=== PATIENT | female | born 1990 | race Caucasian/White ===

== ENCOUNTER 2020-02-27 13:51 | Emergency (ER) | payer OTHER, SELFPAY ==
[2020-02-27 14:00] VITALS: BP 111/61; PULSE 72; RESP 18; TEMP 36.7; O2SAT 100
--- NOTE | 2020-02-27 15:08 | ED.GENADULT ---
HPI - General Adult General Chief complaint: Upper Respiratory Infection Stated complaint: cough/headache History of Present Illness HPI narrative: Patient is a 29-year-old female presents to the urgent care via POV for evaluation of cold symptoms that have been present for approximately 1 day. Additionally, she reports dry cough, sore throat, and fever. She reports maximum temperature to be 100.0. Temperature controlled with Tylenol. Nothing worsened symptoms. She is a current tobacco user. She smokes 0.5 PPD x10 years. She states she is here since her employer recommended her to be medically evaluated and that she would need for a return to work note before returning to work obtained today's visit. Denies history of COPD, bronchitis, asthma, and pneumonia. Pertinent negatives: sweats, chills, change in appetite, fatigue, skin color changes, headache, nasal congestion/discharge, dizziness, lymphadenopathy, sinus problems, ear pain/drainage, drooling, voice changes, chest pain, heart murmurs, heart palpitations, shortness of breath, wheezing, cyanosis, hemoptysis, hoarseness, orthopnea, pleuritic pain, nausea, vomiting, diarrhea, and myalgias. Related Data Home Medications Medication Instructions Recorded Confirmed No Home Medications 02/27/20 02/27/20 Allergies Allergy/AdvReac Type Severity Reaction Status Date / Time sulfa Allergy Intermediate Rash Uncoded 02/27/20 14:11 Review of Systems Review of Systems: Narrative: All other systems reviewed and are negative PMFSH Social History Social History Gender identity (if verbalized by the patient): Female Comments I have reviewed and agree with the patient's past medical, surgical, social, and family hx as documented by the RN. There is no relevant family history pertinent to the presenting complaint. Exam Narrative: Exam Narrative: GENERAL: Well-appearing, well-nourished, and in no acute distress. HEAD: Normocephalic, atraumatic. No sinus tenderness or facial swelling appreciated. EYES: PERRLA and EOMI. No evidence of erythema, swelling, or drainage. ENT: Bilateral external ears and ear canals normal. Bilateral TMs are normal.No TM perforation. Nares clear, no rhinorrhea or epistaxis. Bilateral turbinates without erythema/ swelling. Mucous membranes moist and pink. Uvula is midline without erythema and swelling. No evidence of petechial rash, cobblestoning, lesions, ulcers, erythema, swelling, exudates, peritonsillar abscess, tenting, or drooling. Breath odor and voice normal. NECK: Supple. No Lymphadenopathy or nuchal rigidity appreciated. CHEST: Bilateral lung bejarano are clear to auscultation. No respiratory distress. No evidence of cough or pleuritic cp upon examination. HEART: Regular rate and rhythm. No murmur, gallop, or rub heard. EXTREMITIES: Normal range of motion. No edema. SKIN: Warm, dry, no rash. NEURO: No focal deficits. Alert and oriented x3. Course Vital Signs Vital signs: Vital Signs Temperature 98.1 F 02/27/20 14:00 Pulse Rate 72 02/27/20 14:00 Respiratory Rate 18 02/27/20 14:00 Blood Pressure 111/61 02/27/20 14:00 Pulse Oximetry 100 02/27/20 14:00 Temperature 98.1 F 02/27/20 14:00 Pulse Rate 72 02/27/20 14:00 Respiratory Rate 18 02/27/20 14:00 Blood Pressure 111/61 02/27/20 14:00 Pulse Oximetry 100 02/27/20 14:00 Procedures Smoking Cessation Time Spent Discussing Smoking Cessation w/Patient (min): 2 Patient Acknowledges Need for Cessation: Yes Additional Comments: Review smoking cessation materials Medical Decision Making Medical Records Medical records reviewed: Yes I reviewed the patient's medical records. Vital Signs Vital Signs: Vital Signs Temperature 98.1 F 02/27/20 14:00 Pulse Rate 72 02/27/20 14:00 Respiratory Rate 18 02/27/20 14:00 Blood Pressure 111/61 02/27/20 14:00 Pulse Oximetry 100 04/0
== END 2020-02-27 15:12 | disposition home or self-care (01) ==
PROVIDERS: Emergency Provider Nurse Practitioner Family
DX: J06.9 Acute upper respiratory infection, unspecified (principal); F17.200 Nicotine dependence, unspecified, uncomplicated
CPT/HCPCS: 99211; G0463

== ENCOUNTER 2020-06-12 12:39 | Emergency (ER) | payer OTHER, SELFPAY ==
--- NOTE | ~2020-06-12 | CT_ITS ---
EXAMINATION: CT brain wo con DATE: 06/12/2020 14:10 INDICATION: Head injury. TECHNIQUE: Computed tomography (CT) of the head was performed without intravenous contrast. The mA wa s adjusted according to patient size. Iterative reconstruction technique was employed. Exam dose: 60 5.33 mGy-cm total exam DLP. COMPARISON: 03/14/2013 CT brain FINDINGS: No intracranial mass lesion or hemorrhage or cerebrovascular accident. No midline shift or mass effects. Normal ventricular size. Normal baldwin-white matter differentiation. No subdural or epidu ral hematoma. No fracture or bone destruction of the cranial vault. With the exception of some focal areas of soft tissue thickening of the ethmoid air cells, the included paranasal sinuses and mastoid air cells are normally developed and aerated. No recent fracture or bone destruction of the cranial vault. IMPRESSION: No acute intracranial finding or recent skull fracture Reviewed, dictated and finalized at [facility]. Reviewed, dictated and finalized at [facility].
--- NOTE | ~2020-06-12 | CT_ITS ---
EXAMINATION: CT facial bones wo con DATE: 06/12/2020 14:10 INDICATION: Left jaw pain. Injury. TECHNIQUE: Computed tomography (CT) of the facial bones and maxillofacial region was performed withou t intravenous contrast. Automated exposure control and iterative reconstruction technique were employ ed. The dose-length product was 605.33 mGy-cm. COMPARISON: CT facial bones 06/16/2016 FINDINGS: There are likely changes of right ocular lens replacement surgery. There is mild mucosal th ickening in the ethmoid sinuses. There is a nondisplaced oblique fracture of left mandibular ramus. T here is a nondisplaced fracture of left lateral pterygoid plate. There is leftward deviation the nasa l septum. IMPRESSION: 1. Nondisplaced oblique fracture of left mandibular ramus. 2. Nondisplaced fracture of left lateral pterygoid plate. Reviewed, dictated and finalized at [facility].
--- NOTE | ~2020-06-12 | XR_ITS ---
EXAMINATION: XR hand RT min 3V INDICATION: Right hand pain TECHNIQUE: Three views of the right hand are obtained. COMPARISON: 11/29/2009 FINDINGS: There is no fracture, dislocation, or subluxation. The bones, soft tissues, and joint space s are normal. IMPRESSION: 1. No acute osseous abnormality. Reviewed, dictated and finalized at location [facility].
[2020-06-12 12:45] VITALS: BP 138/66; PULSE 83; RESP 18; TEMP 37.2; O2SAT 100
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
[2020-06-12 14:50] VITALS: PULSE 70; RESP 18; O2SAT 100
[2020-06-12] MEDS: KETOROLAC (*BKC) 60 MG/2 ML VIAL IM (15:07)
[2020-06-12 16:30] VITALS: BP 115/73; PULSE 64; RESP 16; O2SAT 100
== END 2020-06-12 16:34 | disposition home or self-care (01) ==
PROVIDERS: Emergency Provider Emergency Medicine
DX: S02.642A Fracture of ramus of left mandible, initial encounter for closed fracture (principal); S02.19XA Other fracture of base of skull, initial encounter for closed fracture; Z98.49 Cataract extraction status, unspecified eye; Y04.2XXA Assault by strike against or bumped into by another person, initial encounter
CPT/HCPCS: 70450; 70486; 73130; 81025; 96372; 99284; A9270; J1885

== ENCOUNTER 2021-03-16 12:55 | Emergency (ER) | payer OTHER, SELFPAY ==
[2021-03-16 13:04] VITALS: BP 106/60; PULSE 97; RESP 16; TEMP 36.8; O2SAT 100
--- NOTE | 2021-03-16 13:04 | PC.NURSE ---
in br to obtain ua spec.
--- NOTE | 2021-03-16 13:43 | ED.FEMALEGU ---
HPI - Female Genitourinary General Chief complaint: Urogenital-Female Stated complaint: UTI Time Seen by Provider: 03/16/21 13:43 Source: patient and RN notes reviewed Mode of arrival: ambulatory Limitations: no limitations History of Present Illness HPI Narrative: 30-year-old female who presents to [facility] with complaints of urinary frequency, burning,urgency, voiding small amounts, and suprapubic pain for the past 4 days. Patient has stated past urinary tract infections and also history of pyelonephritis in the past.Patient states that she has no vaginal discharge, itching, no new sexual partners or concerns for STD's. Patient states that she has been taking Tylenol and cranberry pills for her discomfort which she rates as 5/10. Patient denies any fevers, chills or sweats, denies any nausea or vomiting, or any CVA tendeerness. MD elicited complaint: dysuria and UTI Pertinent past history: recurrent UTIs Onset (ago): day(s) (4) Location of symptoms: suprapubic Severity: moderate Female Urogenital Radiation: Suprapubic Severity scale (1-10): 5 Quality of pain: burning (with urination) and aching Consistency: progressively worsening Vaginal bleeding: none Urinary symptoms: Dysuria, Urgency, Frequency and Difficulty Urinating Exacerbating factors: urination Relieving factors: none Associated symptoms: abdominal pain (suprapubic) Treatment prior to arrival: acetaminophen and other (cranberry pills) Sexual activity: Yes Patient : No Possible : other (tubal ligation) Related Data Allergies Allergy/AdvReac Type Severity Reaction Status Date / Time sulfa Allergy Intermediate Rash Uncoded 02/27/20 14:11 Review of Systems Review of Systems: Narrative: CONSTITUTIONAL: Denies fever, chills, or sweats. EYES: Denies visual changes, redness, or discharge. ENT: Denies rhinorrhea, congestion, sore throat, or otalgia. CARDIOVASCULAR: Denies chest pain, palpitations, or edema. RESPIRATORY: Denies cough or dyspnea. GASTROINTESTINAL:Positive for suprapubic abdominal pain, no nausea, vomiting, or diarrhea. GENITOURINARY:Positive dysuria no visual hematuria. SKIN: Denies rash or itching. MUSCULOSKELETAL: Denies back pain, joint pain, or myalgia. NEUROLOGIC: Denies headache, numbness, or weakness. PSYCHIATRIC: Denies anxiety or depression. All systems reviewed & are unremarkable except as noted in HPI and below PMFSH Past Medical History Medical History (Updated 03/20/21 @ 16:11 by Mayelin Peres NP) Hx of migraines Mandible fracture Surgical History Surgical History (Updated 06/12/20 @ 13:20 by Rachel Sanchez PA-C) History of cataract extraction History of tubal ligation Family History Family History (Updated 03/20/21 @ 16:18 by Mayelin Peres NP) Grandparent Cerebrovascular accident Other Autoimmune disease Heart disease Hypertension Social History Social History (Updated 03/20/21 @ 16:16 by Mayelin Peres NP) Smoking packs per day: 0.5 Smoking cigarettes per day: 10.0 Smoking status: Current every day smoker Tobacco type: cigarettes Alcohol intake: current Alcohol use details: rare social Substance use: never Living arrangements: with family Gender identity (if verbalized by the patient): Female Comments At time of signature agree with nursing documentation of past medical, surgical, social and family history. There is no pertinent family history relevant to presenting complaint. Exam Narrative: Exam Narrative: GENERAL: Well-appearing, well-nourished, and in no acute distress. HEAD: Normocephalic, atraumatic. EYES: PERRLA and EOMI. ENT: Nares clear, no rhinorrhea or epistaxis. Mucous membranes moist. NECK: Supple.no lymphadenopathy CHEST: Clear to auscultation. No respiratory distress.SAO2 100% on room air HEART: Regular rate and rhythm. No murmur heard. Normal peripheral pulses. ABDOMEN: Soft, tender over suprapubic area of abdomen, nondistended, normal activ
== END 2021-03-16 14:02 | disposition home or self-care (01) ==
PROVIDERS: Emergency Provider Registered Nurse
DX: N39.0 Urinary tract infection, site not specified (principal); F17.210 Nicotine dependence, cigarettes, uncomplicated
CPT/HCPCS: 81003; 87077; 87086; 87088; 87186; 99213; G0463

== ENCOUNTER 2021-08-29 19:24 | Emergency (ER) | payer OTHER, SELFPAY ==
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
[2021-08-29 19:32] VITALS: BP 129/81; PULSE 81; RESP 18; TEMP 36.8; O2SAT 98
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
[2021-08-29] MEDS: ACETAMINOPHEN 500 MG TABLET 1000 MG PO (20:34)
--- NOTE | 2021-08-29 20:35 | PC.NURSE ---
pt. requesting medication for yeast infection. erp notified.
== END 2021-08-29 21:22 | disposition home or self-care (01) ==
PROVIDERS: Emergency Provider Emergency Medicine
DX: S39.92XA Unspecified injury of lower back, initial encounter (principal); Z98.49 Cataract extraction status, unspecified eye; F17.210 Nicotine dependence, cigarettes, uncomplicated; V40.5XXA Car driver injured in collision with pedestrian or animal in traffic accident, initial encounter
CPT/HCPCS: 72100; 73521; 81025; 99284; A9270

== ENCOUNTER 2021-10-12 10:14 | Emergency (ER) | payer OTHER, SELFPAY ==
[2021-10-12 10:29] VITALS: BP 117/59; PULSE 94; RESP 18; TEMP 36.9; O2SAT 100
--- NOTE | 2021-10-12 11:45 | ED.FEMALEGU ---
HPI - Female Genitourinary General Chief complaint: Urogenital-Female Stated complaint: Yeast Infection Time Seen by Provider: 10/12/21 11:43 Source: patient and RN notes reviewed Mode of arrival: ambulatory Limitations: no limitations History of Present Illness HPI Narrative: 30-year-old female presents with concern for abnormal vaginal discharge. Reports foul-smelling discharge, occasional vaginal itching. Reports she was seen at the emergency room and was given Diflucan 4 weeks ago which did not improve her symptoms. She denies any chance for STDs, reports normal periods. 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 She denies dysuria, frequency, urgency MD elicited complaint: vaginal discharge Related Data Allergies Allergy/AdvReac Type Severity Reaction Status Date / Time sulfa Allergy Intermediate Rash Uncoded 08/29/21 19:35 Review of Systems Review of Systems: CONSTITUTIONAL: Denies malaise, chills, sweats, or fever. GASTROINTESTINAL: Denies abdominal pain, nausea, vomiting, diarrhea, bloody, or mucous stools. GENITOURINARY: Denies dysuria or hematuria. Reports foul-smelling vaginal discharge SKIN: Reports occasional vaginal itching MUSCULOSKELETAL: Denies back pain or myalgia. All systems reviewed & are unremarkable except as noted in HPI and below PMFSH Past Medical History Medical History Hx of migraines Mandible fracture Surgical History Surgical History History of cataract extraction History of tubal ligation Family History Family History Grandparent Cerebrovascular accident Other Autoimmune disease Heart disease Hypertension Social History Social History (Updated 03/20/21 @ 16:16 by Mayelin Peres NP) Smoking packs per day: 0.5 Smoking cigarettes per day: 10.0 Smoking status: Current every day smoker Tobacco type: cigarettes Alcohol intake: current Alcohol use details: rare social Substance use: never Gender identity (if verbalized by the patient): Female Comments At time of signature, agree with nursing past medical, surgical, social and family history. There is no relevant family history pertinent to the presenting complaint Exam Narrative: GENERAL: Well-appearing, well-nourished, and in no acute distress. HEAD: Normocephalic. EYES: PERRLA, conjunctivae clear. NECK: Supple. No lymphadenopathy CHEST: Clear to auscultation. No respiratory distress. HEART: Regular rate and rhythm. SKIN: Warm, dry, no rash. NEURO: Alert and oriented x3. PSYCH: Normal mood and affect Patient refused pelvic exam Course Course Emergency Course: Patient is aware of diagnosis, understands and agrees to treatment plan. Anticipatory guidance given. Patient agrees to follow-up as directed and is aware of reasons to seek care at the emergency department. Portions of this record may have been created with voice recognition software Vital Signs Vital signs: Vital Signs Temperature 98.5 F 10/12/21 10:29 Pulse Rate 94 10/12/21 10:29 Respiratory Rate 18 10/12/21 10:29 Blood Pressure 117/59 L 10/12/21 10:29 Pulse Oximetry 100 10/12/21 10:29 Temperature 98.5 F 10/12/21 10:29 Pulse Rate 94 10/12/21 10:29 Respiratory Rate 18 10/12/21 10:29 Blood Pressure 117/59 L 10/12/21 10:29 Pulse Oximetry 100 10/12/21 10:29 Reviewed. MDM - Female Genitourinary MDM Narrative Medical decision making narrative: Exam findings show no acute concerns or changes; patient is non-toxic appearing and is in no distress. Patient is appropriate for outpatient treatment and follow-up. Differential Diagnosis Differential diagnosis: Likely bacterial vaginosis, cervicitis, vaginitis and other (Yeast infection) Critical Care Time Critical Care Time Critical Care Time: No Discharge Plan Discha
== END 2021-10-12 11:56 | disposition home or self-care (01) ==
PROVIDERS: Emergency Provider Nurse Practitioner
DX: N89.8 Other specified noninflammatory disorders of vagina (principal); F17.210 Nicotine dependence, cigarettes, uncomplicated
CPT/HCPCS: 99213; G0463

== ENCOUNTER 2023-11-11 00:51 | Emergency (ER) | payer OTHER, SELFPAY ==
--- NOTE | ~2023-11-11 | XR_ITS ---
XR forearm RT 2V 11/11/2023 01:29 INDICATION: Right arm pain PROCEDURE: 2 views right forearm COMPARISON: No prior studies for comparison. FINDINGS: Fracture, dislocation or subluxation is not identified. The soft tissues appear within norm al limits. No foreign bodies are identified. IMPRESSION: 1: NO ACUTE BONE OR JOINT ABNORMALITY IDENTIFIED. Reviewed, dictated and finalized at location A. CHARGE BOOKKEEPER
[2023-11-11 00:53] VITALS: BP 116/63; PULSE 103; RESP 16; TEMP 36.6; O2SAT 96
--- NOTE | 2023-11-11 01:10 | ED.UPPEXIN ---
HPI - Extremity Injury (Upper) General Chief Complaint: Extremity Injury, Upper Stated Complaint: hurt my arm a week ago swollen and pain, R. arm Time Seen by Provider: 11/11/23 01:03 Source: patient Mode of arrival: ambulatory Limitations: no limitations History of Present Illness HPI narrative: This is a 32 year old female that presents to the ER for right arm pain and swelling. Ongoing over the last week. Reports she was doing some yard work and the pain started the next day. No known injuries. She has had persistent swelling and pain in the right arm which prompted her to be seen. She has been icing the area. Denies decreased ROM or numbness. Related Data Home Medications Medication Instructions Recorded Confirmed bupropion HCl 150 mg 24 hr tablet, mg PO 11/11/23 extended release hydroxyzine HCl 25 mg tablet mg 11/11/23 Allergies Allergy/AdvReac Type Severity Reaction Status Date / Time Sulfa (Sulfonamide Allergy Rash Verified 11/11/23 01:10 Antibiotics) sulfa Allergy Intermediate Rash Uncoded 08/29/21 19:35 Review of Systems Review of Systems: CONSTITUTIONAL: Denies fever MUSCULOSKELETAL: Reports joint pain, and myalgia. NEUROLOGIC: Denies numbness, or weakness. All systems reviewed & are unremarkable except as noted in HPI and below PMFSH Past Medical History Medical History Hx of migraines Mandible fracture Surgical History Surgical History History of cataract extraction History of tubal ligation Family History Family History Grandparent Cerebrovascular accident Other Autoimmune disease Heart disease Hypertension Social History Social History (Updated 03/20/21 @ 16:16 by Mayelin Peres NP) Smoking packs per day: 0.5 Smoking cigarettes per day: 10.0 Smoking status: Current every day smoker Tobacco type: cigarettes Alcohol intake: current Alcohol use details: rare social Substance use: never Living arrangements: with family Gender identity (if verbalized by the patient): Female Exam Narrative: GENERAL: Well-appearing, well-nourished, and in no acute distress. HEAD: Normocephalic, atraumatic. EYES: EOMI. EXTREMITIES: Normal range of motion. No erythema or warmth. Mild edema about the right forearm distally. Normal radial pulse. Normal sensation SKIN: Warm, dry, no rash. NEURO: No focal deficits. Alert and oriented x3. PSYCH: Normal mood and affect Course Course Emergency Course: patient updated on workup and agrees with plan of care Vital Signs Vital signs: Vital Signs Temperature 97.9 F 11/11/23 00:53 Pulse Rate 103 H 11/11/23 00:53 Respiratory Rate 16 11/11/23 00:53 Blood Pressure 116/63 11/11/23 00:53 Pulse Oximetry 96 11/11/23 00:53 Oxygen Delivery Room Air 11/11/23 00:53 Temperature 97.9 F 11/11/23 00:53 Pulse Rate 103 H 11/11/23 00:53 Respiratory Rate 16 11/11/23 00:53 Blood Pressure 116/63 11/11/23 00:53 Pulse Oximetry 96 11/11/23 00:53 Oxygen Delivery Room Air 11/11/23 00:53 MDM - Extremity Injury (Upper) MDM Narrative Medical decision making narrative: Patient presents to the ER for right forearm pain ongoing over the last week. Mild swelling noted to the area without erythema or warmth. Patient is neurovascularly intact. Cbc without leukocytosis. Shows normocytic anemia with hemoglobin of 9.9. Metabolic panel with hypokalemia. Patient's potassium replaced in the ED. Her magnesium is normal. D-dimer is not elevated. Right forearm x-rays without acute osseous abnormalities. Patient placed in Toño wrap. Instructed to rest, ice and take [id number] pain medication as needed. She is to follow up with primary care provider. She was given warnings to return to the ER Differential Diagnosis Differenti
[2023-11-11] MEDS: ACETAMINOPHEN 500 MG TABLET 1000 MG PO (01:14)
[2023-11-11 01:54] LABS: Basophils Percent Auto 0.2 % (0.2-1.2); Eosinophils Absolute Auto 0.1 K/mm3 (0-0.3); Eosinophils Percent Auto 1.3 % (0-4.4); Hematocrit 30.4 % (37.0-47.0); Hemoglobin 9.9 g/dL (12.0-15.0); Immature Granulocyte Absolute 0.01 K/mm3 (0.00-0.031); Immature Granulocyte Percent A 0.2 % (0-0.5); Lymphocytes Absolute Auto 1.72 K/mm3 (0.9-3.2); Lymphocytes Percent Auto 36.6 % (18.3-44.2); Mean Corpuscular HGB Conc 32.6 g/dl (32-36); Mean Corpuscular Hemoglobin 29.7 pg (26-34); Mean Corpuscular Volume 91.3 fl (80-100); Mean Platelet Volume 9.8 fl (7.4-10.4); Monocytes Absolute Auto 0.4 K/mm3 (0.1-0.6); Monocytes Percent Auto 7.7 % (2.6-8.5); Neutrophils Absolute Auto 2.5 K/mm3 (1.3-6.7); Platelet Count Result 160 k/mm3 (150-375); Red Blood Count 3.33 M/mm3 (4.2-5.4); Red Cell Distribution Width 14.3 % (11.5-14.5); White Blood Count 4.7 K/mm3 (4.5-10.0)
[2023-11-11 02:18] LABS: Anion Gap 9 mmol/L (8-16); Blood Urea Nitrogen 11 mg/dL (7-17); Calcium 8.7 mg/dL (8.4-10.2); Carbon Dioxide 27 mmol/L (22-30); Chloride 99 mmol/L (98-107); Estimated CRCL calculation 93 ml/min; Estimated Glomerular Filt Rate > 60; Glucose 111 mg/dL (65-110); Sodium 135 mmol/L (137-145)
[2023-11-11 02:33] LABS: Magnesium 1.7 mg/dL (1.6-2.3)
[2023-11-11] MEDS: POTASSIUM CHLORIDE 20 MEQ ER TABLET 40 MEQ PO (02:55)
[2023-11-11 02:56] LABS: D Dimer 0.27 ug/mL (<0.48)
== END 2023-11-11 03:13 | disposition home or self-care (01) ==
PROVIDERS: Emergency Provider Physician Assistant
DX: M79.631 Pain in right forearm (principal); E87.6 Hypokalemia; D64.9 Anemia, unspecified; F17.210 Nicotine dependence, cigarettes, uncomplicated
CPT/HCPCS: 36415; 73090; 80048; 83735; 85025; 85380; 99283; A9270

== ENCOUNTER 2024-01-23 19:55 | Emergency (ER) | payer OTHER, SELFPAY ==
[2024-01-23 20:13] VITALS: BP 128/86; PULSE 82; RESP 16; TEMP 36.5; O2SAT 100
[2024-01-23 20:19] LABS: Basophils Percent Auto 0.5 % (0.2-1.2); Eosinophils Absolute Auto 0.1 K/mm3 (0-0.3); Eosinophils Percent Auto 1.5 % (0-4.4); Hematocrit 34.9 % (37.0-47.0); Hemoglobin 11.7 g/dL (12.0-15.0); Immature Granulocyte Absolute 0.01 K/mm3 (0.00-0.031); Immature Granulocyte Percent A 0.2 % (0-0.5); Lymphocytes Percent Auto 36.3 % (18.3-44.2); Mean Corpuscular HGB Conc 33.5 g/dl (32-36); Mean Corpuscular Hemoglobin 29.9 pg (26-34); Mean Corpuscular Volume 89.3 fl (80-100); Mean Platelet Volume 10.2 fl (7.4-10.4); Monocytes Absolute Auto 0.3 K/mm3 (0.1-0.6); Monocytes Percent Auto 6.5 % (2.6-8.5); Neutrophils Absolute Auto 2.3 K/mm3 (1.3-6.7); Platelet Count Result 146 k/mm3 (150-375); Red Blood Count 3.91 M/mm3 (4.2-5.4); White Blood Count 4.1 K/mm3 (4.5-10.0)
[2024-01-23 20:33] LABS: Alanine Aminotransferase 11 U/L (6-35); Albumin Level 4.3 g/dL (3.5-5.1); Alkaline Phosphatase 47 U/L (38-126); Anion Gap 9 mmol/L (8-16); Aspartate Amino Transferase 16 U/L (14-36); Bilirubin,Total 0.3 mg/dL (0.2-1.3); Blood Urea Nitrogen 14 mg/dL (7-17); Carbon Dioxide 23 mmol/L (22-30); Chloride 106 mmol/L (98-107); Estimated CRCL calculation 94 ml/min; Estimated Glomerular Filt Rate > 60; Glucose 117 mg/dL (65-110); Lipase 52 U/L (23-300); Sodium 138 mmol/L (137-145)
[2024-01-23 20:49] LABS: Appearance Urine Cloudy (Clear); Bacteria Urine 4+ /hpf; Bilirubin Urine Negative (Negative); Blood Urine Negative (Negative); Color Urine Yellow (Yellow); Glucose Urine UA Negative (Negative); Ketones Urine Trace mg/dL (Negative); Leukocyte Esterase Ur Negative LEU/UL (Negative); Need Manual Microscopic Reviewed; Nitrate Urine Negative (Negative); Non Pathogenic Casts 0-2; Protein Urine Trace mg/dL (Negative); RBC Urine 0-2 /hpf (0-2); Specific Grav Ur 1.026 (1.001-1.035); Squamous Epithelial Cell Urine Many /hpf (Few); WBC Urine 21-50 /hpf
[2024-01-23 20:51] LABS: Add Urine Microscopic? YES
--- NOTE | 2024-01-24 00:01 | PC.NURSE ---
Pt called for triage x2, no answer.
== END 2024-01-24 00:56 | disposition left against medical advice (07) ==
PROVIDERS: Emergency Provider Emergency Medicine
DX: M54.50 Low back pain, unspecified (principal)
CPT/HCPCS: 36415; 80053; 81001; 81025; 83690; 85025; 87086; 87088; 99199

== ENCOUNTER 2024-04-05 21:30 | Emergency (ER) | payer OTHER, SELFPAY ==
[2024-04-05 21:44] VITALS: BP 120/66; PULSE 76; RESP 17; TEMP 37.1; O2SAT 95
[2024-04-05 21:51] VITALS: PULSE 81; RESP 12; O2SAT 97
--- NOTE | 2024-04-05 21:59 | ECG_ITS ---
SEE SCANNED COPY FOR CONFIRMED REPORT MTDD
--- NOTE | 2024-04-05 22:31 | ED.GENADULT ---
HPI - General Adult General Chief complaint: Unspecified Stated complaint: jitters, hot flashes Time Seen by Provider: 04/05/24 21:56 History of Present Illness HPI narrative: 33-year-old female presents emergency department for evaluation for ?withdrawal? symptoms. Patient reports she has been drinking a ganga energy drink, drinking about 3 a day. Patient states when she tries to stop drinking than she feels increasingly sick to her stomach. Patient reports body aches. Patient suspects she has going through withdrawal. Patient also suspects that the company is putting something in the drinks that they are not telling the consumers about. Related Data Home Medications Medication Instructions Recorded Confirmed bupropion HCl 150 mg 24 hr tablet, mg PO 11/11/23 extended release hydroxyzine HCl 25 mg tablet mg 11/11/23 Allergies Allergy/AdvReac Type Severity Reaction Status Date / Time Sulfa (Sulfonamide Allergy Rash Verified 04/05/24 21:56 Antibiotics) sulfa Allergy Intermediate Rash Uncoded 04/05/24 21:56 Review of Systems Review of Systems: All systems reviewed & are unremarkable except as noted in HPI and below PMFSH Past Medical History Medical History Hx of migraines Mandible fracture Surgical History Surgical History History of cataract extraction History of tubal ligation Family History Family History Grandparent Cerebrovascular accident Other Autoimmune disease Heart disease Hypertension Social History Social History (Updated 03/20/21 @ 16:16 by Mayelin Peres NP) Smoking packs per day: 0.5 Smoking cigarettes per day: 10.0 Smoking status: Current every day smoker Tobacco type: cigarettes Alcohol intake: current Alcohol use details: rare social Substance use: never Living arrangements: with family Gender identity (if verbalized by the patient): Female Exam Narrative: APPEARANCE: Well appearing, no pain, no distress, well-nourished. HEAD: normocephalic, atraumatic. EYES: PERRLA/EOMI, conjunctivae clear. NOSE: Normal no drainage EARS:TMS clear with good light reflex. THROAT: Pharynx clear, no exudate. NECK: Supple. No adenopathy, no masses. RESPIRATORY: Airway patent, respirations nonlabored. Clear to auscultation bilaterally, no rales, rhonchi, wheezing. CARDIOVASCULAR: Regular rate and rhythm without murmurs rubs or gallops. ABDOMINAL: Soft, nontender, nondistended, normal bowel sounds MUSCULOSKELETAL: Moves all extremities. Strength/ROM intact, No edema, No calf tenderness. NEURO: Alert. Cranial nerves II through XII intact. Grossly intact SKIN: Warm, dry. Normal Color Course Vital Signs Vital signs: Vital Signs Temperature 98.8 F 04/05/24 21:44 Pulse Rate 76 04/05/24 21:44 Respiratory Rate 17 04/05/24 21:44 Blood Pressure 120/66 04/05/24 21:44 Pulse Oximetry 95 04/05/24 21:44 Oxygen Delivery Room Air 04/05/24 21:44 Temperature 98.8 F 04/05/24 21:44 Pulse Rate 64 04/05/24 22:59 Respiratory Rate 14 04/05/24 22:59 Blood Pressure 116/74 04/05/24 22:59 Pulse Oximetry 100 04/05/24 22:59 Oxygen Delivery Room Air 04/05/24 21:44 Medical Decision Making MDM Narrative Medical decision making narrative: 33-year-old female presents emergency department for evaluation for feeling jittery hang her energy drinks. Patient is afebrile with no leukocytosis and a stable hemoglobin. Patient has no abnormalities on her electrolytes within normal TSH and Mag. UA shows no evidence of infection. No abnormalities the urine drug screen. Patient was advised to continue to refrain from the energy drinks. Patient was encouraged to drink plenty of fluids. Patient was encouraged of close follow-up with her primary care physician. Differential
[2024-04-05 22:43] LABS: Basophils Percent Auto 0.6 % (0.2-1.2); Eosinophils Absolute Auto 0.1 K/mm3 (0-0.3); Eosinophils Percent Auto 2.2 % (0-4.4); Hematocrit 36.8 % (37.0-47.0); Hemoglobin 12.5 g/dL (12.0-15.0); Immature Granulocyte Absolute 0.01 K/mm3 (0.00-0.031); Immature Granulocyte Percent A 0.2 % (0-0.5); Lymphocytes Absolute Auto 1.48 K/mm3 (0.9-3.2); Lymphocytes Percent Auto 29.8 % (18.3-44.2); Mean Corpuscular Hemoglobin 31.4 pg (26-34); Mean Corpuscular Volume 92.5 fl (80-100); Mean Platelet Volume 10.7 fl (7.4-10.4); Monocytes Absolute Auto 0.3 K/mm3 (0.1-0.6); Monocytes Percent Auto 6.6 % (2.6-8.5); Neutrophils Percent Auto 60.6 % (45.5-73.1); Platelet Count Result 173 k/mm3 (150-375); Red Blood Count 3.98 M/mm3 (4.2-5.4); Red Cell Distribution Width 13.2 % (11.5-14.5)
[2024-04-05] MEDS: SODIUM CHLORIDE 0.9% IV 1,000 ML 999 ML IV CONT (22:48)
[2024-04-05 22:54] LABS: Alanine Aminotransferase 8 U/L (6-35); Albumin Level 4.5 g/dL (3.5-5.1); Alkaline Phosphatase 49 U/L (38-126); Anion Gap 7 mmol/L (4-12); Aspartate Amino Transferase 13 U/L (14-36); Bilirubin,Total 0.5 mg/dL (0.2-1.3); Blood Urea Nitrogen 14 mg/dL (7-17); Calcium 8.8 mg/dL (8.4-10.2); Carbon Dioxide 26 mmol/L (22-30); Chloride 105 mmol/L (98-107); Estimated CRCL calculation 89 ml/min; Estimated Glomerular Filt Rate > 60; Glucose 103 mg/dL (65-110); Magnesium 1.8 mg/dL (1.6-2.3); Potassium 3.4 mmol/L (3.4-5.0); Sodium 138 mmol/L (137-145)
[2024-04-05 22:59] VITALS: BP 116/74; PULSE 64; RESP 14; O2SAT 100
[2024-04-05 23:33] LABS: Appearance Urine Clear (Clear); Bacteria Urine 1+ /hpf; Bilirubin Urine Negative (Negative); Blood Urine Negative (Negative); Color Urine Dark Yellow (Yellow); Glucose Urine UA Negative (Negative); Ketones Urine Trace mg/dL (Negative); Leukocyte Esterase Ur Negative LEU/UL (Negative); Nitrate Urine Negative (Negative); Non Pathogenic Casts 0-2; Protein Urine 1+ mg/dL (Negative); RBC Urine 0-2 /hpf (0-2); Squamous Epithelial Cell Urine Few /hpf (Few); pH Urine 5.5 (5.0-9.0)
[2024-04-05 23:36] LABS: Add Urine Microscopic? YES
[2024-04-06 00:01] LABS: Amphetamine Screen Urine Negative (Negative); Barbiturate Screen Urine Negative (Negative); Benzodiazepines Screen Urine Negative (Negative); Cannabinoid Screen Urine Negative (Negative); Cocaine Screen Urine Negative (Negative); Methadone Screen Urine Negative (Negative); Opiate Screen Urine Negative (Negative); Phencyclidine Screen Urine Negative (Negative)
== END 2024-04-06 00:22 | disposition home or self-care (01) ==
PROVIDERS: Emergency Provider Emergency Medicine
DX: R45.0 Nervousness (principal); F17.210 Nicotine dependence, cigarettes, uncomplicated
CPT/HCPCS: 36415; 80053; 80307; 81001; 83735; 84443; 85025; 87086; 87088; 93005; 96360; 99284; J7030

== ENCOUNTER 2025-04-08 14:45 | Emergency (ER) | payer OTHER, SELFPAY ==
[2025-04-08 14:48] VITALS: BP 135/83; PULSE 87; RESP 22; TEMP 36.8; O2SAT 98
--- OUTSIDE RECORDS SUMMARY | 2025-04-08 14:48 | XMS_ITS | Clinical Summary ---
Author Organization [facility] [employer] Address [address] [place] [address] Care Team Providers Care Grades 1 Through 5 Teacher Name Role Phone Unavailable Primary Care Provider Unavailabl e Source Comments [facility] [employer],non-owned Affiliates and Associated Physician Practices is amultiple site organization consisting of ambulatory clinics and hospital sitesin [place], [place], [place] and [place]. This disclosure is being madepursuant to the Care Everywhere program and may not contain all information available regarding this patient. Last updated 18.[facility] [employer] Allergies No known active allergies Medications * Be aware that medications may not be up to date on this document. Alwaysverify current medications with the patient. acetaminophen (TYLENOL) 325 MG tablet Take 1 tablet by mouth every 4 hours as needed for Fever or Pain Maximum allowable Acetaminophen amount = 4 Grams (4000 mg) / 24 hours. 20 tablet 0 Active ibuprofen (MOTRIN) 400 MG tablet Take 1 tablet by mouth every 6 hours as needed for Pain 20 tablet 1 0 Active Active Problems Problem Noted Date Diagnosed Date Closed fracture of body of mandible with routine healing Social History Tobacco Use Types Packs/Day Years Used Date Smoking Tobacco: Every Day Cigarettes 0.5 19.8 Started: 06/24/2005 Smokeless Tobacco: Never Tobacco Cessation:Ready to Q uit: Yes Alcohol Use Standard Drinks/Week Comments Yes 5 (1 standard drink = 0.6 oz pur e alcohol) Occassionally on weekends Comments No Sex and Gender Information Value Date Recorded Sex Assigned at Not on file Legal Sex Female 6:34 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 Gender Identity Not on file Sexual Orientation Not on file Last Filed Vital Signs Vital Sign Reading Time Taken Comments Blood Pressure 114/69 09/16/2020 1:00 PM CDT Pulse 58 09/16/2020 12:30 PM CDT Temperature 36.6 C (97.8 F) 09/16/2020 12:45 PM CDT Respiratory Rate 18 09/16/2020 12:30 PM CDT Oxygen Saturation 100% 09/16/2020 12:50 PM CDT Inhaled Oxygen Concentration 21% 09/16/2020 1 2:30 PM CDT Weight 63.8 kg (140 lb 9.6 oz) 09/16/2020 9:22 A M CDT Height 165.1 cm (5' 5 ) 09/16/2020 9:22 AM CDT Body Mass Index 23.4 09/16/2020 9:22 AM CDT Plan of Treatment Health Maintenance Due Date Last Done Comments HIV SCREENING 2005 HEPATITIS C SCREENING 11/07/2008 DTAP/TDAP/TD VACCINES (1 - Tdap) 2009 HEPATITIS B VACCINE (1 of 3 - 19+ 3-dose series) 2009 COVID-19 VACCINE (1 - 2023-2 5 season) 2024 DEPRESSION SCREENING 11/20/2024 INFLUENZA VACCINE (Season Ended) 2025 ZOSTER VACCINE (1 of 2) 2040 HIB VACCINE Aged Out No longer eligi ble based on patient's age to complete this topic HPV VACCINE Aged Out No longer eligi ble based on patient's age to complete this topic MENINGOCOCCAL (Group B) VACC INE SHARED DECISION-MAKING Aged Out No longer eligibl e based on patient's age to complete this topic MENINGOCOCCAL GROUPS A/C/Y/W VACCINE Aged Out No longer eligible b ased on patient's age to complete this topic PNEUMOCOCCAL VACCINE Aged Out No long er eligible based on patient's age to complete this topic Medical Devices Implanted Type Area Plastic Boat Buffer Device Identifier Shelf Expiration Date Model / Serial / Lot Screw 2mm 8mm Slf Drl Xpn Lgt Wire Mndb Implanted:Qty : 4 on 06/24/2020 by Jethro Correa MD at [facility] Explanted:Qty : 2 on 09/16/2020 at [facility] N/A: Mandible Tee Craniomaxillofacial / / Explanted Type Area Plastic Boat Buffer Device Identifier Shelf Expiration Date Model / Serial / Lot Screw 2mm 8mm Slf Drl Xpn Lgt Wire Mndb Implanted:Qty : 4 on 06/24/2020 by Jethro Correa MD at [facility] Explanted:Qty : 4 on 09/16/2020 at [facility] N/A: Maxilla Reeds Craniomaxillofacial / / Insurance [employer]
--- OUTSIDE RECORDS SUMMARY | 2025-04-08 14:48 | XMS_ITS | Clinical Summary ---
Author Organization [facility] Address [address] [place] [address] Care Team Providers Care Flume Worker Name Role Phone No, Physician Unavailable No, Physician Primary Care Provider [phone] Allergies Active Allergy Reactions Criticality Noted Date Comments Sulfa (Sulfonamide Antibiotics) Itching,Rash Medium Medications prednisoLONE acetate (PRED FORTE) 1 % ophthalmic suspension Administer 1 drop into the left eye 4 (four) times a day 5 mL 1 1 Active ofloxacin (OCUFLOX) 0.3 % ophthalmic solution 1 Active metroNIDAZOLE (FLAGYL) 500 mg tablet 1 Active ibuprofen (ADVIL,MOTRIN) 800 mg tablet 1 Active fluconazole (DIFLUCAN) 150 mg tablet 1 Active Active Problems Problem Noted Date Diagnosed Date ERRONEOUS ENCOUNTER--DISREGARD 11/05/2021 Congenital cataract of left eye 04/22/2021 Assessment & Plan (10/22/2021 11:42 PM PRODUCTION AIDE): POD1 Exchange Intraocular Lens - Right and Vitrectomy Anterior - Right 09/15/2021 Postoperative instructions were given. The patient is to use: Moxifloxacin QID X 1 week Prednisolone Acetate 1% QID Patient is to wear the shield at bedtime X 1 week. Signs, symptoms of retinal detachment, tear, hole, and endophthalmitis were reviewed and the patient is to call immediately for concerns. We discussed that things should improve until they stabilize. Should there be any worsening of pain, vision, or redness the patient is to call. Followup 1 week or sooner prn issues. For other eye: S/p Exchange Intraocular Lens - Right and Vitrectomy Anterior - Right 09/15/2021 - Patient missed post-op - Doing well Dislocated intraocular lens, subsequent encounte r 04/20/2021 Assessment & Plan (11/08/2021 10:41 PM PRODUCTION AIDE): POD1 Extraction Cataract - Phacoemulsification And Lens Implant - Left 11/03/2021 - Missed POD1 visit - Exam reassuring Plan: - Taper PF - RTC Optometry locally in 1 mo for refraction S/p Exchange Intraocular Lens - Right and Vitrectomy Anterior - Right 09/15/2021 - Hx of Congenital Cataract s/p CEIOL. PMMA was in sulcus pushing on iris w/o chafe/donesis. Patient underwent exchange for refractive purposes to lower dependence on CTL. - Doing well Assessment & Plan (09/16/2021 11:15 AM CDT): POD1 Exchange Intraocular Lens - Right and Vitrectomy Anterior - Right 09/15/2021 - Hx of Congenital Cataract s/p CEIOL. PMMA was in sulcus pushing on iris w/o chafe/donesis. Patient underwent exchange for refractive purposes to lower dependence on CTL. Postoperative instructions were given. The patient is to use: Moxifloxacin QID X 1 week Prednisolone Acetate 1% QID Diamox BID for 3 days Patient is to wear the shield at bedtime X 1 week. Signs, symptoms of retinal detachment, tear, hole, and endophthalmitis were reviewed and the patient is to call immediately for concerns. We discussed that things should improve until they stabilize. Should there be any worsening of pain, vision, or redness the patient is to call. Followup 1 week or sooner prn issues. Then can return to see me in 7-8 weeks for suture removal with postop visits for OS For other eye: OS 2 months later phaco/IOL general anesthesia Assessment & Plan (04/22/2021 9:46 AM CDT): History of congenital cataracts status post (s/p) CEIOL. Single piece PMMA in sulcus pushing against iris but no donesis or chafe. Symptoms started > 1 yr prior. High myope with CTL wear and she is interested in reducing her dependence on CTL. OS will likely need surgery therefore we discussed OS plano - which would mean that OD would require IOL exchange vs CTL. She prefers IOL exchange target plano. Plan IOL removal - large incision, then placement of 3pc in sulcus. Will have calcs for optic capture (would need capsule relaxing incisions). Otherwise sulcus placement. Discussed possible amblyopia OU RBA discussed, pt agrees to: OD IOL exchange, ant vit - general anesthesia OS 2 months later phaco/IOL general anesthesia IOLM,speculars Immunizations Immunization Administration Dates Next Due DTP 02/21/1995 Influenza, Trivalent, Preservative Free, Intramu scular 12/10/2015 MMR 02/21/1995 OPV 02/21/1995 Rho (D) Immune Globulin, IV or IM 10/08/2015 Tdap 12/22/2015 Surgical History Surgery Date Site/Laterality Comments MANDIBLE FRACTURE SURGERY 11/20/2019 - 11/19/2020 VITRECTOMY 09/15/2021 Right IOL Echange w/ Vit, Dr. Jacobson CATARACT EXTRACTION 1996ish Right CATARACT EXTRACTION W/ INTRAOCULAR LENS IMPLANT 11/03/2021 Left Phaco/IOL Family History Medical History Relation Name Comments Anesthesia problems Neg Hx Blindness Neg Hx Glaucoma Neg Hx Macular degeneration Neg Hx Social History Tobacco Use Types Packs/Day Years Used Date Smoking Tobacco: Every Day Cigarettes Smokeless Tobacco: Never Tobacco Cessation:Ready to Q uit: No; Counseling Given: Yes AUDIT-C Answer Date Recorded Q1: How often do you have a drink containing alc ohol? 2-4 times a month 10/29/2021 Q2: How many drinks containi ng alcohol do you have on a typical day when you are drinking? 5 or 6 10/29/2021 Q3: How often do you have si x or more drinks on one occasion? Less than monthly 10/29/2021 Comments No Sex and Gender Information Value Date Recorded Sex Assigned at Not on file Legal Sex Female 11:15 PM PRODUCTION AIDE Gender Identity Not on file Sexual Orientation Not on file Obstetrics History Last Filed Vital Signs Vital Sign Reading Time Taken Comments Blood Pressure 115/65 11/03/2021 4:20 PM PRODUCTION AIDE Pulse 86 11/03/2021 4:25 PM PRODUCTION AIDE Temperature 36.2 C (97.2 F) 11/03/2021 4:05 PM PRODUCTION AIDE Respiratory Rate 11 11/03/2021 4:25 PM PRODUCTION AIDE Oxygen Saturation 99% 11/03/2021 4:25 PM PRODUCTION AIDE Inhaled Oxygen Concentration - - Weight 61.2 kg (135 lb) 11/03/2021 12:51 PM PRODUCTION AIDE Height 165.1 cm (5' 5 ) 11/03/2021 12:51 PM PRODUCTION AIDE Body Mass Index 22.47 11/03/2021 12:51 PM PRODUCTION AIDE Plan of Treatment Health Maintenance Due Date Last Done Comments Cervical Cancer Screening 1990 Depression Screening 1990 Hepatitis C Screening 1990 Varicella Vaccines (1 of 2 - 13+ 2-dose series) 2003 Hepatitis B Screening 2008 Regular Well Visit/Exam 18-64 2008 Pneumococcal vaccine <65 (1 of 2 - PCV) 2009 Influenza Vaccine (Season Ended) 2025 12/10/2015 DTaP/Tdap/Td Vaccine (3 - Td or Tdap) 12/22/2025 12/22/2015, 02/21/1995 HPV Vaccines Aged Out No longer eligi ble based on patient's age to complete this topic Medical Devices Implanted Type Area Swine Extension Field Specialist Device Identifier Shelf Expiration Date Model / Serial / Lot [employer] [id number] 17.0 Tecnis Optiedge 6mm 13mm 3 Piece Anterior Aspheric Monofocal Uv - [id number] - [id number] Implanted:Qty: 1 on 09/15/2021 by Mackenzie Jacobson MD at [facility] Lens Right: Lens [place] [employer] [id number] 05/31/2022 [id number] / [id number] / [employer] [id number] - [id number] - [id number] Implanted:Qty: 1 on 11/03/2021 by Mackenzie Jacobson MD at [facility] Lens Left: Lens [employer] [id number] 05/19/2024 [id number] / [id number] / Insurance [facility] Care Teams Flume Worker Relationship Specialty Start Date End Date No, Physician PCP - General 04/22/21 No, Physician 04/15/21
--- OUTSIDE RECORDS SUMMARY | 2025-04-08 14:48 | XMS_ITS | Referral Summary ---
Author Organization [facility] Address [address] [place] [address] Care Team Providers Care [employer] Assembly Line Worker Name Role Phone No, Physician Unavailable No, Physician Primary Care Provider [phone] Allergies Active Allergy Reactions Criticality Noted Date [...] 04/22/2021 Assessment & Plan (10/22/2021 11:42 PM GEAR CUTTER): POD1 Exchange Intraocular Lens - Right and [...] 04/20/2021 Assessment & Plan (11/08/2021 10:41 PM GEAR CUTTER): POD1 Extraction Cataract - Phacoemulsification And Lens [...] Globulin, IV or IM 10/08/2015 Tdap 12/22/2015 Social History Tobacco Use Types Packs/Day Years [...] on file Legal Sex Female 11:15 PM GEAR CUTTER Gender Identity Not on file Sexual Orientation Not on file Last Filed Vital Signs Vital Sign Reading Time Taken Comments Blood Pressure 115/65 11/03/2021 4:20 PM GEAR CUTTER Pulse 86 11/03/2021 4:25 PM GEAR CUTTER Temperature 36.2 C (97.2 F) 11/03/2021 4:05 PM GEAR CUTTER Respiratory Rate 11 11/03/2021 4:25 PM GEAR CUTTER Oxygen Saturation 99% 11/03/2021 4:25 PM GEAR CUTTER Inhaled Oxygen Concentration - - Weight 61.2 kg (135 lb) 11/03/2021 12:51 PM GEAR CUTTER Height 165.1 cm (5' 5 ) 11/03/2021 12:51 PM GEAR CUTTER Body Mass Index 22.47 11/03/2021 12:51 PM GEAR CUTTER Plan of Treatment Not on file Medical Devices Implanted Type Area Certified Coding Specialist Device Identifier Shelf Expiration Date Model / Serial / Lot [place] [employer] [id number] 17.0 Tecnis Optiedge 6mm 13mm 3 Piece Anterior Aspheric Monofocal Uv - [id number] - [id number] Implanted:Qty: 1 on 09/15/2021 by Mackenzie Jacobson MD at [facility] Lens Right: Lens [place] [employer] [id number] 05/31/2022 [id number] / [id number] / [employer] [id number] - [id number] - [id number] Implanted:Qty: 1 on 11/03/2021 by Mackenzie Jacobson MD at [facility] Lens Left: Lens [employer] [id number] 05/19/2024 [id number] / [id number] / Insurance Care Teams Western T[employer] Assembly Line Worker Relationship Specialty Start Date End Date No, Physician PCP - General 04/22/21 No, Physician 04/15/21
--- OUTSIDE RECORDS SUMMARY | 2025-04-08 14:49 | XMS_ITS | Patient Health Record ---
Author Organization [facility] Address [address] [place] [address] Care Team Providers Care Family Resource Specialist Name Role Phone Hector Strickland Primary Care Provider Gustavo Selena Unavailable [phone] Paul Kathy Unavailable [phone] KassidyAntolinae Unavailable [phone] Allergies No Known Allergies Results Component Value Reference Range Notes 12 Panel Urine Drug Screen Reviewed date:09/26/2024 10:53:57 AM Interpretation: Performing Lab: Notes/Report: THC neg KWAKU neg MOP (OPI) neg AMP neg MET neg BAR neg BZO neg MDMA neg MTD neg OXY neg PCP neg BUP neg 12 Panel Urine Drug Screen Reviewed date:05/29/2024 04:39:16 PM Interpretation: Performing Lab: Notes/Report: THC neg KWAKU neg MOP (OPI) neg AMP neg MET neg BAR neg BZO neg MDMA neg MTD neg OXY neg PCP neg BUP neg Reason For Referral No Information Medications Medication SIG (Take, Route, Frequency, Duration) Notes Start Date End Date Status Vyvanse 30 MG 1 capsule in the morning ( DAW1) Orally Once a day. for 30 days 03/27/2025 Active Vyvanse 30 MG 1 capsule in the morning Orally Once a day. Please fill on or after April 24, 2025. for 30 days 03/28/2025 Active traZODone HCl 50 MG 1 tablet at bedtime as needed for insomnia Orally Once a day for 90 days Active Vyvanse 30 MG 1 capsule in the morning Orally Once a day. Please fill on or after May 20, 2025. for 30 days 03/28/2025 Active guanFACINE HCl 1 MG TAKE 1 TABLET BY MOUTH EVERY DAY AT BEDTIME for 30 Not-Taking Vyvanse 30 MG 1 capsule in the morning ( DAW1) Orally Once a day for 30 days Resending with DAW1 coding. 01/20/2025 Active Concerta 27 MG 1 tablet in the morning Orally Once a day for 30 days 08/28/2024 Not-Taking Methylphenidate HCl 20 MG 1.5 tablet on an empty stomach Orally Twice a day. Please fill on or after December 02, 2024. for 30 days 11/06/2024 Active Social History Tobacco Use: Social History Observation Description Date Details (start date - stop date) Current Smoker NA - NA Sex Assigned At : Social History Observation Description Sex Assigned At Female Dont use, Tobacco Use/Smoking Question Answer Notes Are you a nonsmoker Tobacco Control (Standard) Question Answer Notes Tobacco use: Current every day smoker Additional Findings: Tobacco user e-cigarette Problems Problem Type SNOMED Code ICD Code Onset Dates Problem Status W/U Status Risk Notes Problem Tobacco user (211951503) Nicotine dependence, unspecified, uncomplicated (F17.200) Active confirmed Problem Anxiety (32083882) Anxiety (F41.9) Active confirmed Problem Attention deficit disorder (22406576) ADD (attention deficit disorder) (F90.0) Active confirmed Problem Depressed (10686120) Depressed (F32.9) Active confirmed Problem Impaired concentration (3584860386) Impaired concentration (R41.840) Active confirmed Vital Signs Heart Rate 88 /min 09/26/2024 Temperature 97.3 degrees Fahrenheit 09/26/2024 Respiratory Rate 16 /min 09/26/2024 Blood pressure diastolic 70 mm Hg 09/26/2024 Oximetry 97 % 09/26/2024 Height 66 in 09/26/2024 Blood pressure systolic 118 mm Hg 09/26/2024 Weight 146.4 lbs 09/26/2024 BMI 23.63 kg/m2 09/26/2024 Encounters Encounter Location Date Provider Diagnosis [address] [place] [address] 05/29/2024 Mel Kassidy Anxiety F41.9 ; Depressed F32.9 and Impaired concentration R41.[address] [place] [address] 07/04/2024 Mel Yi Anxiety F41.9 ; Depressed F32.9 and Impaired concentration R41.[address] [address] 08/28/2024 Hector Strickland Anxiety F41.9 ; ADD (attention deficit disorder) F90.0 ; Depressed F32.9 and Nicotine dependence, unspecified, uncomplicated F17.[address] [address] 09/26/2024 Hector Strickland ADD (attention deficit disorder) F90.0 ; Encounter for immunization Z23 ; Nicotine dependence, unspecified, uncomplicated F17.200 ; Anxiety F41.9 ; Depressed F32.9 and Medication monitoring encounter Z51.[address] [address] 11/06/2024 Hector Strickland Anxiety F41.9 ; ADD (attention deficit disorder) F90.0 ; Depressed F32.9 and Medication side effect T88.7XXA [address] [address] 01/20/2025 Hector Strickland ADD (attention deficit disorder) F90.0 ; Anxiety F41.9 ; Depressed F32.9 and Medication side effect T88.7XXA [address] [address] 03/27/2025 Hector Strickland ADD (attention deficit disorder) F90.0 ; Depressed F32.9 ; Anxiety F41.9 and Medication side effect T88.7XXA [address] [address] 05/24/2024 Selena Chen [address] [address] 05/30/2024 Mel Yi [address] [address] 06/05/2024 Mel Yi Impaired concentration R41.[address] [place] [address] 08/30/2024 Hector Strickland ADD (attention deficit disorder) F90.[address] [address] 09/26/2024 Hector Strickland [address] [address] 11/04/2024 Kathy Miller ADD (attention deficit disorder) F90.[address] [address] 01/14/2025 Hector Strickland ADD (attention deficit disorder) F90.[address] [address] 01/20/2025 Hector Strickland ADD (attention deficit disorder) F90.[address] [address] 09/05/2024 Hector Strickland [address] [address] 09/27/2024 Hector Strickland [address] [address] 02/19/2025 Hector Strickland Assessments Encounter Date Diagnosis (ICD Code) Assessment Notes Treatment Notes Treatment Clinical Notes Section Notes 05/29/2024 Anxiety (ICD-10 - F41.9) Will restart Hydroxyzine at this time to aid anxiety; pt reports that she has done well on med in the past. Will consider starting BuSpar in the future if needed. Encouraged pt to continue to talk with therapist 06/05/2024 Impaired concentration (ICD-10 - R41.840) 07/04/2024 Anxiety (ICD-10 - F41.9) Will increase Hydroxyzine to 1-2 tablets at bedtime to aid sleep and decrease anxiety at bedtime. Will also start BuSpar BID at this time to aid anxiety. Encouraged pt to continue to talk with therapist 08/28/2024 Anxiety (ICD-10 - F41.9) Client agreeable to send over the screening forms her counselor completed in the past for ADHD screening. Many medications have failed and client continues to have many symptoms indicative of ADD. Discussed a trial of Concerta and trazodone for sleep. Discussed the risks vs. benefit of stimulant class. Client instructed to keep stimulant in its original container at all times. Trazodone for c/o insomnia and continued melatonin use - client agreeable to tx changes. All prior medications discontinued as client wants to start over with new treatment plan. 08/28/2024 ADD (attention deficit disorder) (ICD-10 - F90.0) Client agreeable to send over the screening forms her counselor completed in the past for ADHD screening. Many medications have failed and client continues to have many symptoms indicative of ADD. Discussed a trial of Concerta and trazodone for sleep. Discussed the risks vs. benefit of stimulant class. Client instructed to keep stimulant in its original container at all times. Trazodone for c/o insomnia and continued melatonin use - client agreeable to tx changes. All prior medications discontinued as client wants to start over with new treatment plan. 08/30/2024 ADD (attention deficit disorder) (ICD-10 - F90.0) 09/26/2024 Encounter for immunization (ICD-10 - Z23) Ordered per standing orders for administering influenza vaccine to adults. Client with improvement with methylphenidate transition. States she ran out of script several days ago (why not showing on UDS). Had doubled up on script. Discussed the importance of taking medications according to directions and to discuss with provider before making changes due to dangers that could occur. Client requests changing to immediate release BID rather than ER with booster as she states she felt better with booster dose. Will change to Methylphenidate 30 mg BID. 09/26/2024 ADD (attention deficit disorder) (ICD-10 - F90.0) Client with improvement with methylphenidate transition. States she ran out of script several days ago (why not showing on UDS). Had doubled up on script. Discussed the importance of taking medications according to directions and to discuss with provider before making changes due to dangers that could occur. Client requests changing to immediate release BID rather than ER with booster as she states she felt better with booster dose. Will change to Methylphenidate 30 mg BID. 11/04/2024 ADD (attention deficit disorder) (ICD-10 - F90.0) 11/06/2024 Anxiety (ICD-10 - F41.9) Client doing well overall except for minor side effects r/t methylphenidate which were addressed via education and prn start of Pepcid/Colace. No other changes to tx plan. 11/06/2024 ADD (attention deficit disorder) (ICD-10 - F90.0) Client doing well overall except for minor side effects r/t methylphenidate which were addressed via education and prn start of Pepcid/Colace. No other changes to tx plan. 01/14/2025 ADD (attention deficit disorder) (ICD-10 - F90.0) 01/20/2025 Anxiety (ICD-10 - F41.9) Client doing well except for side effects from methylphenidate (gastric upset, constipation). States she is drinking adequate amount of water, eating what she feels is high enough fiber diet. Discussed switching to Vyvanse to see if still problematic for her. She is agreeable. Discussed that if issues continue she may have high sensitivity to stimulants in regard to her intestinal motility and benefit versus risk will need to be reassessed. She verbalizes agreement/unders tanding. 01/20/2025 ADD (attention deficit disorder) (ICD-10 - F90.0) Client doing well except for side effects from methylphenidate (gastric upset, constipation). States she is drinking adequate amount of water, eating what she feels is high enough fiber diet. Discussed switching to Vyvanse to see if still problematic for her. She is agreeable. Discussed that if issues continue she may have high sensitivity to stimulants in regard to her intestinal motility and benefit versus risk will need to be reassessed. She verbalizes agreement/unders tanding. 01/20/2025 ADD (attention deficit disorder) (ICD-10 - F90.0) 03/27/2025 ADD (attention deficit disorder) (ICD-10 - F90.0) Client has had a very good response to Vyvanse with stomach complications that she was having on methylphenidate products and Strattera resolving. No treatment plan changes needed at this time with the exception of her no longer needing to take Pepcid - this has been discontinued as her GERD symptoms have resolved with the transition to Vyvanse. 03/27/2025 Depressed (ICD-10 - F32.9) Client has had a very good response to Vyvanse with stomach complications that she was having on methylphenidate products and Strattera resolving. No treatment plan changes needed at this time with the exception of her no longer needing to take Pepcid - this has been discontinued as her GERD symptoms have resolved with the transition to Vyvanse. 01/20/2025 Depressed (ICD-10 - F32.9) Client doing well except for side effects from methylphenidate (gastric upset, constipation). States she is drinking adequate amount of water, eating what she feels is high enough fiber diet. Discussed switching to Vyvanse to see if still problematic for her. She is agreeable. Discussed that if issues continue she may have high sensitivity to stimulants in regard to her intestinal motility and benefit versus risk will need to be reassessed. She verbalizes agreement/unders tanding. 11/06/2024 Depressed (ICD-10 - F32.9) Client doing well overall except for minor side effects r/t methylphenidate which were addressed via education and prn start of Pepcid/Colace. No other changes to tx plan. 09/26/2024 Nicotine dependence, unspecified, uncomplicated (ICD-10 - F17.200) Client with improvement with methylphenidate transition. States she ran out of script several days ago (why not showing on UDS). Had doubled up on script. Discussed the importance of taking medications according to directions and to discuss with provider before making changes due to dangers that could occur. Client requests changing to immediate release BID rather than ER with booster as she states she felt better with booster dose. Will change to Methylphenidate 30 mg BID. 08/28/2024 Depressed (ICD-10 - F32.9) Client agreeable to send over the screening forms her counselor completed in the past for ADHD screening. Many medications have failed and client continues to have many symptoms indicative of ADD. Discussed a trial of Concerta and trazodone for sleep. Discussed the risks vs. benefit of stimulant class. Client instructed to keep stimulant in its original container at all times. Trazodone for c/o insomnia and continued melatonin use - client agreeable to tx changes. All prior medications discontinued as client wants to start over with new treatment plan. 07/04/2024 Depressed (ICD-10 - F32.9) 05/29/2024 Depressed (ICD-10 - F32.9) 05/29/2024 Impaired concentration (ICD-10 - R41.840) Pt stopped Strattera months ago due to side effects of migraines. Will start Guanfacine ER for impaired concentration and focus issues. Pt is not working or going to school at this time. Pt understands that I am not willing to prescribe a stimulant at this time. UDS ordered at this time. 07/04/2024 Impaired concentration (ICD-10 - R41.840) Will stop Guanfacine as pt does not think medication is working for her. Pt also has failed Strattera and Wellbutrin in the past. Will start Qelbree at this time to aid concentration and focus. Pt has no formal diagnosis of ADD/ADHD: last ADHD self report completed was borderline. Pt reports that her counselor diagnosed her with ADD and agrees to provide us with copy of diagnosis. Pt understands that I am not willing to prescribe a stimulant at this time. Pt is applying for jobs at this time. 08/28/2024 Nicotine dependence, unspecified, uncomplicated (ICD-10 - F17.200) Client agreeable to send over the screening forms her counselor completed in the past for ADHD screening. Many medications have failed and client continues to have many symptoms indicative of ADD. Discussed a trial of Concerta and trazodone for sleep. Discussed the risks vs. benefit of stimulant class. Client instructed to keep stimulant in its original container at all times. Trazodone for c/o insomnia and continued melatonin use - client agreeable to tx changes. All prior medications discontinued as client wants to start over with new treatment plan. 09/26/2024 Anxiety (ICD-10 - F41.9) Client with improvement with methylphenidate transition. States she ran out of script several days ago (why not showing on UDS). Had doubled up on script. Discussed the importance of taking medications according to directions and to discuss with provider before making changes due to dangers that could occur. Client requests changing to immediate release BID rather than ER with booster as she states she felt better with booster dose. Will change to Methylphenidate 30 mg BID. 11/06/2024 Medication side effect (ICD-10 - T88.7XXA) Client doing well overall except for minor side effects r/t methylphenidate which were addressed via education and prn start of Pepcid/Colace. No other changes to tx plan. 01/20/2025 Medication side effect (ICD-10 - T88.7XXA) Client doing well except for side effects from methylphenidate (gastric upset, constipation). States she is drinking adequate amount of water, eating what she feels is high enough fiber diet. Discussed switching to Vyvanse to see if still problematic for her. She is agreeable. Discussed that if issues continue she may have high sensitivity to stimulants in regard to her intestinal motility and benefit versus risk will need to be reassessed. She verbalizes agreement/unders tanding. 03/27/2025 Anxiety (ICD-10 - F41.9) Client has had a very good response to Vyvanse with stomach complications that she was having on methylphenidate products and Strattera resolving. No treatment plan changes needed at this time with the exception of her no longer needing to take Pepcid - this has been discontinued as her GERD symptoms have resolved with the transition to Vyvanse. 03/27/2025 Medication side effect (ICD-10 - T88.7XXA) Client has had a very good response to Vyvanse with stomach complications that she was having on methylphenidate products and Strattera resolving. No treatment plan changes needed at this time with the exception of her no longer needing to take Pepcid - this has been discontinued as her GERD symptoms have resolved with the transition to Vyvanse. 09/26/2024 Depressed (ICD-10 - F32.9) Client with improvement with methylphenidate transition. States she ran out of script several days ago (why not showing on UDS). Had doubled up on script. Discussed the importance of taking medications according to directions and to discuss with provider before making changes due to dangers that could occur. Client requests changing to immediate release BID rather than ER with booster as she states she felt better with booster dose. Will change to Methylphenidate 30 mg BID. 09/26/2024 Medication monitoring encounter (ICD-10 - Z51.81) Client with improvement with methylphenidate transition. States she ran out of script several days ago (why not showing on UDS). Had doubled up on script. Discussed the importance of taking medications according to directions and to discuss with provider before making changes due to dangers that could occur. Client requests changing to immediate release BID rather than ER with booster as she states she felt better with booster dose. Will change to Methylphenidate 30 mg BID. 05/29/2024 Other Discussed treat ment planDiscussed sleep hygiene and caffeine intakeReturn to clinic 4 weeksUDS ordered today Encouraged counselingDiscussed treatment plan; patient is agreeable and accepting of treatment plan. Patient denies further questions or concerns at this time. The Patient/Guardian asked appropriate questions, appeared to understand the answers, and decided to accept the treatment and continue being followed.The Patient/Guardian is aware of the need to contact the office or return for an earlier appointment if any problems or concerns arise. May also contact the 24-hour crisis hotline ([facility]), refer to the closest emergency room or call 911 if new symptoms arise of existing symptoms worsen; the Patient/Guardian is aware that this would apply to symptoms such as: suicidal ideation, homicidal ideation, high risk behaviors, manic symptoms, psychotic symptoms, physical symptoms, or any other symptoms that may be dangerous to self or others. 07/04/2024 Other Discussed treat ment planDiscussed sleep hygiene and caffeine intakeReturn to clinic 4 weeksEncouraged counselingDiscussed treatment plan; patient is agreeable and accepting of treatment plan. Patient denies further questions or concerns at this time. The Patient/Guardian asked appropriate questions, appeared to understand the answers, and decided to accept the treatment and continue being followed.The Patient/Guardian is aware of the need to contact the office or return for an earlier appointment if any problems or concerns arise. May also contact the 24-hour crisis hotline ([facility]), refer to the closest emergency room or call 911 if new symptoms arise of existing symptoms worsen; the Patient/Guardian is aware that this would apply to symptoms such as: suicidal ideation, homicidal ideation, high risk behaviors, manic symptoms, psychotic symptoms, physical symptoms, or any other symptoms that may be dangerous to self or others. 08/28/2024 [place]. Discussed sleep hygiene and caffeine intake with encouragement to limit electronic devices an hour before bed and to limit caffeine after 3:00pm. Exercise benefits for mood and health discussed. Psychoeducation regarding psychiatric illness provided. Client was educated about risks and benefits of medication, alternatives to medication, off label uses of medication, suicidal ideation with SSRIs, self-administration and compliance with medication along with how to safely store medication. Verbal informed consent obtained. Client agrees to return sooner if symptoms worsen or if suicidal or homicidal ideations occur. Client has the phone number to the 24-hour crisis line at [facility]. Questions addressed. Client verbalized understanding of all information and is agreeable to treatment plan. Client agreeable to send over the screening forms her counselor completed in the past for ADHD screening. Many medications have failed and client continues to have many symptoms indicative of ADD. Discussed a trial of Concerta and trazodone for sleep. Discussed the risks vs. benefit of stimulant class. Client instructed to keep stimulant in its original container at all times. Trazodone for c/o insomnia and continued melatonin use - client agreeable to tx changes. All prior medications discontinued as client wants to start over with new treatment plan. 09/26/2024 [place] issues [place]. Discussed sleep hygiene and caffeine intake with encouragement to limit electronic devices an hour before bed and to limit caffeine after 3:00pm. Exercise benefits for mood and health discussed. Psychoeducation regarding psychiatric illness provided. Client was educated about risks and benefits of medication, alternatives to medication, off label uses of medication, suicidal ideation with SSRIs, self-administration and compliance with medication along with how to safely store medication. Verbal informed consent obtained. Client agrees to return sooner if symptoms worsen or if suicidal or homicidal ideations occur. Client has the phone number to the 24-hour crisis line at [facility]. Questions addressed. Client verbalized understanding of all information and is agreeable to treatment plan. Client with improvement with methylphenidate transition. States she ran out of script several days ago (why not showing on UDS). Had doubled up on script. Discussed the importance of taking medications according to directions and to discuss with provider before making changes due to dangers that could occur. Client requests changing to immediate release BID rather than ER with booster as she states she felt better with booster dose. Will change to Methylphenidate 30 mg BID. 11/06/2024 [place]. Discussed sleep hygiene and caffeine intake with encouragement to limit electronic devices an hour before bed and to limit caffeine after 3:00pm. Exercise benefits for mood and health discussed. Psychoeducation regarding psychiatric illness provided. Client was educated about risks and benefits of medication, alternatives to medication, off label uses of medication, suicidal ideation with SSRIs, self-administration and compliance with medication along with how to safely store medication. Verbal informed consent obtained. Client agrees to return sooner if symptoms worsen or if suicidal or homicidal ideations occur. Client has the phone number to the 24-hour crisis line at [facility]. Questions addressed. Client verbalized understanding of all information and is agreeable to treatment plan. Client doing well overall except for minor side effects r/t methylphenidate which were addressed via education and prn start of Pepcid/Colace. No other changes to tx plan. 01/20/2025 [place] issues [place]. Discussed sleep hygiene and caffeine intake with encouragement to limit electronic devices an hour before bed and to limit caffeine after 3:00pm. Exercise benefits for mood and health discussed. Psychoeducation regarding psychiatric illness provided. Client was educated about risks and benefits of medication, alternatives to medication, off label uses of medication, suicidal ideation with SSRIs, self-administration and compliance with medication along with how to safely store medication. Verbal informed consent obtained. Client agrees to return sooner if symptoms worsen or if suicidal or homicidal ideations occur. Client has the phone number to the 24-hour crisis line at [facility]. Questions addressed. Client verbalized understanding of all information and is agreeable to treatment plan. Client doing well except for side effects from methylphenidate (gastric upset, constipation). States she is drinking adequate amount of water, eating what she feels is high enough fiber diet. Discussed switching to Vyvanse to see if still problematic for her. She is agreeable. Discussed that if issues continue she may have high sensitivity to stimulants in regard to her intestinal motility and benefit versus risk will need to be reassessed. She verbalizes agreement/unders tanding. [place]2025 [place] issues noted. Discussed sleep hygiene and caffeine intake with encouragement to limit electronic devices an hour before bed and to limit caffeine after 3:00pm. Exercise benefits for mood and health discussed. Psychoeducation regarding psychiatric illness provided. Client was educated about risks and benefits of medication, alternatives to medication, off label uses of medication, suicidal ideation with SSRIs, self-administration and compliance with medication along with how to safely store medication. Verbal informed consent obtained. Client agrees to return sooner if symptoms worsen or if suicidal or homicidal ideations occur. Client has the phone number to the 24-hour crisis line at [facility]. Questions addressed. Client verbalized understanding of all information and is agreeable to treatment plan. Client has had a very good response to Vyvanse with stomach complications that she was having on methylphenidate products and Strattera resolving. No treatment plan changes needed at this time with the exception of her no longer needing to take Pepcid - this has been discontinued as her GERD symptoms have resolved with the transition to Vyvanse. Plan Of Treatment No Information Insurance Providers Payer Name Payer Address Payer Phone Subscriber Number Group Number Insured Name Patient Relationship to Insured Coverage Start Date Coverage End Date [employer] [address] [place] [address] [id number] Vale Carrasco Self - patient is the insured 3 [employer] [address] [place] [address] [id number] Vale Carrasco Self - patient is the insured 3 Medical (General) History Surgical History Surgery Date(Month/Year) cataract removal(bilateral) 2020 RT cataract removal 08/2022 LT cataract removal 10/2022 Hospitalization History Reason Date(Month/Year)
[2025-04-08 17:08] VITALS: BP 106/63; PULSE 69; RESP 16; TEMP 36.4; O2SAT 100
--- NOTE | 2025-04-08 17:31 | ED_ITS ---
HPI - General Adult General Chief complaint: Unspecified Stated complaint: nausea, hot flashes, generalized pain Time Seen by Provider: 04/08/25 17:31 Focused HPI: patient is a 34-year-old female who presents the ED with report of withdrawal from energy shots. Patient reports over the past 3 months, she has been consistently using Tianeptine elixir energy shots. She states she would typically use 4 shots per day, every day, for 3 months. she has been trying to stop taking then this month, but has been having adverse effects when she goes without the shots. She looked them up online and realized that it is known to cause opioid effects/called gas station heroin. she last took 1 of the shot today at noon. She reports she develops severe generalized pain, diaphoresis, hot flashes, nausea, diarrhea when she does not take the shots. Denies SOB, CP. Denies any other drug or etoh use. GENERAL: Mildly ill-appearing, well-nourished, and in no acute distress. HEAD: Normocephalic, atraumatic. CHEST: Clear to auscultation. ?No respiratory distress. HEART: Regular rate and rhythm.? NEURO: ?Alert and oriented x3. Patient screened in triage and initial orders placed.? ?Additional care and disposition to be based upon?diagnostic testing and treatment. Source: patient Mode of arrival: ambulatory Limitations: no limitations Related Data Home Medications ?Medication ?Instructions ?Recorded ?Confirmed ?Last Taken ?Type bupropion HCl 150 mg 24 hr tablet, mg PO 11/11/23 Unknown History extended release hydroxyzine HCl 25 mg tablet mg 11/11/23 Unknown History Allergies Allergy/AdvReac Type Severity Reaction Status Date / Time Sulfa (Sulfonamide Allergy Rash Verified 04/08/25 14:51 Antibiotics) sulfa Allergy Intermediate Rash Uncoded 04/08/25 14:51 PMFSH Past Medical History Medical History Hx of migraines Mandible fracture Surgical History Surgical History History of cataract extraction History of tubal ligation Family History Family History Grandparent Cerebrovascular accident Other Autoimmune disease Heart disease Hypertension Social History Social History (Updated 03/20/21 @ 16:16 by Mayelin Peres NP) Smoking packs per day: 0.5 Smoking cigarettes per day: 10.0 Smoking status: Current every day smoker Tobacco type: cigarettes Alcohol intake: current Alcohol use details: rare social Substance use: never Living arrangements: with family Gender identity (if verbalized by the patient): Female Course Vital Signs Vital signs: Vital Signs Temperature 98.3 F 04/08/25 14:48 Pulse Rate 87 04/08/25 14:48 Respiratory Rate 22 H 04/08/25 14:48 Blood Pressure 135/83 04/08/25 14:48 Pulse Oximetry 98 04/08/25 14:48 Temperature 98.2 F 04/08/25 19:32 Pulse Rate 68 04/08/25 19:32 Respiratory Rate 16 04/08/25 17:08 Blood Pressure 110/65 04/08/25 19:32 Pulse Oximetry 100 04/08/25 19:32 Medical Decision Making MDM Narrative Medical decision making narrative: MSE by GAYE in triage. Patient left the facility after initial MSE in triage without further workup or care. Vital Signs Vital Signs: Vital Signs Temperature 98.3 F 04/08/25 14:48 Pulse Rate 87 04/08/25 14:48 Respiratory Rate 22 H 04/08/25 14:48 Blood Pressure 135/83 04/08/25 14:48 Pulse Oximetry 98 04/08/25 14:48 Temperature 98.2 F 04/08/25 19:32 Pulse Rate 68 04/08/25 19:32 Respiratory Rate 16 04/08/25 17:08 Blood Pressure 110/65 04/08/25 19:32 Pulse Oximetry 100 04/08/25 19:32 Lab Data 04/08/25 19:33 04/08/25 19:33 Labs: Lab Results 04/08/25 Range/Units 19:33 WBC 4.6 (4.5-10.0) K/mm3 RBC 4.27 (4.2-5.4) M/mm3 Hgb 12.0 (12.0-15.0) g/dL Hct 37.6 (37.0-47.0) % MCV 88.1 (80-100) fl MCH 28.1 (26-34) pg MCHC 31.9 L (32-36) g/dl RDW 13.0 (11.5-14.5) % Plt Count 175 (150-375) k/mm3 MPV 10.3 (7.4-10.4) fl Immature Gran % (Auto) 0.2 (0-0.5) % Neut % (Auto) 59.9 (45.5-73.1) % Lymph % (Auto) 32.2 (18.3-44.2) % [place] % (Auto) 5.5 (2.6-8.5) % Eos % (Auto) 1.5 (0-4.4) % Baso % (Auto) 0.7 (0.2-1.2) % Lymph # (Auto) 1.47 (0.9-3.2) K/mm3 [place] # (Auto) 0.3 (0.1-0.6) K/mm3 Eos # (Auto) 0.1 (0-0.3) K/mm3 Baso # (Auto) 0.0 (0.0-0.1) K/mm3 Abs Immat Gran (auto) 0.01 (0.00-0.031) K/mm3 Absolute Neuts (auto) 2.7 (1.3-6.7) K/mm3 Absolute Nucleated RBC 0.000 (0.0-0.012) K/mm3 Nucleated RBC % 0.0 (0.0-0.2) % Sodium 142 (137-145) mmol/L Potassium 3.3 L (3.4-5.0) mmol/L Chloride 102 (98-107) mmol/L Carbon Dioxide 31 H (22-30) mmol/L Anion Gap 9 (4-12) mmol/L BUN 3 L D (7-17) mg/dL Creatinine 0.69 L (0.7-1.0) mg/dL Estim Creat Clear Calc 89 ml/min Estimated GFR > 60 (59 - ) Glucose 105 (65-110) mg/dL Calcium 9.1 (8.4-10.2) mg/dL Magnesium 2.2 (1.6-2.3) mg/dL Discharge Plan Discharge Clinical Impression: Use of energy drinks, Nausea, Hot flashes Patient Disposition: Elopement After Seen by Prov Patient Language: Thai Prescriptions: No Action hydroxyzine HCl 25 mg tablet bupropion HCl 150 mg tablet extended release 24 hr PO Follow-up/Referrals: PHYSICIAN,CHRISTIAN MINISTRIES PROFESSOR [Primary Care Provider] -
[2025-04-08 19:32] VITALS: BP 110/65; PULSE 68; TEMP 36.8; O2SAT 100
[2025-04-08 19:44] LABS: Basophils Percent Auto 0.7 % (0.2-1.2); Eosinophils Absolute Auto 0.1 K/mm3 (0-0.3); Eosinophils Percent Auto 1.5 % (0-4.4); Hematocrit 37.6 % (37.0-47.0); Immature Granulocyte Absolute 0.01 K/mm3 (0.00-0.031); Immature Granulocyte Percent A 0.2 % (0-0.5); Lymphocytes Absolute Auto 1.47 K/mm3 (0.9-3.2); Lymphocytes Percent Auto 32.2 % (18.3-44.2); Mean Corpuscular HGB Conc 31.9 g/dl (32-36); Mean Corpuscular Hemoglobin 28.1 pg (26-34); Mean Corpuscular Volume 88.1 fl (80-100); Mean Platelet Volume 10.3 fl (7.4-10.4); Monocytes Absolute Auto 0.3 K/mm3 (0.1-0.6); Monocytes Percent Auto 5.5 % (2.6-8.5); Neutrophils Absolute Auto 2.7 K/mm3 (1.3-6.7); Neutrophils Percent Auto 59.9 % (45.5-73.1); Platelet Count Result 175 k/mm3 (150-375); Red Blood Count 4.27 M/mm3 (4.2-5.4); White Blood Count 4.6 K/mm3 (4.5-10.0)
[2025-04-08 19:53] LABS: Anion Gap 9 mmol/L (4-12); Blood Urea Nitrogen 3 mg/dL (7-17); Calcium 9.1 mg/dL (8.4-10.2); Carbon Dioxide 31 mmol/L (22-30); Chloride 102 mmol/L (98-107); Estimated CRCL calculation 89 ml/min; Estimated Glomerular Filt Rate > 60; Glucose 105 mg/dL (65-110); Magnesium 2.2 mg/dL (1.6-2.3); Potassium 3.3 mmol/L (3.4-5.0); Sodium 142 mmol/L (137-145)
--- NOTE | 2025-04-08 20:31 | PC.NURSE ---
Call x1 to be brought back to a room with no reply.
--- NOTE | 2025-04-08 21:17 | PC.NURSE ---
called in WR x2 with no reply.
--- OUTSIDE RECORDS SUMMARY | 2025-04-08 21:23 | XMS_ITS | Clinical Summary ---
Author Organization [facility] Address [address] [place] [address] Care Team Providers Care Software Sales Representative Name Role Phone Unavailable Primary Care Provider Unavailabl e Source Comments [facility],non-owned Affiliates and Associated Physician Practices is amultiple site organization consisting of ambulatory clinics and hospital sitesin [place], [place], [place] and [place]. This disclosure is being madepursuant to the Care Everywhere program and may not contain all information available regarding this patient. 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 Gender Identity Not on file Sexual Orientation [...] this topic Medical Devices Implanted Type Area Receptionist Scheduler Device Identifier Shelf Expiration Date Model / Serial / Lot Screw 2mm 8mm Slf Drl Xpn Lgt Wire Mndb Implanted:Qty : 4 on 06/24/2020 by Jethro Correa MD at [facility] Explanted:Qty : 2 on 09/16/2020 at [facility] N/A: Mandible Tee Craniomaxillofacial / / Explanted Type Area Receptionist Scheduler Device Identifier Shelf Expiration Date Model / Serial / Lot Screw 2mm 8mm Slf Drl Xpn Lgt Wire Mndb Implanted:Qty : 4 on 06/24/2020 by Jethro Correa MD at [facility] Explanted:Qty : 4 on 09/16/2020 at [facility] N/A: Maxilla Pelham Craniomaxillofacial / / [facility]
--- OUTSIDE RECORDS SUMMARY | 2025-04-08 21:23 | XMS_ITS | Clinical Summary ---
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 Gender Identity Not on file Sexual Orientation Not on file Obstetrics History Last Filed Vital Signs Vital Sign Reading Time Taken Comments Blood Pressure 115/65 11/03/2021 4:20 PM ENERGY AND CONSERVATION TECHNICIAN Pulse 86 11/03/2021 4:25 PM ENERGY AND CONSERVATION TECHNICIAN Temperature 36.2 C (97.2 F) 11/03/2021 4:05 PM ENERGY AND CONSERVATION TECHNICIAN Respiratory Rate 11 11/03/2021 4:25 PM ENERGY AND CONSERVATION TECHNICIAN Oxygen Saturation 99% 11/03/2021 4:25 PM ENERGY AND CONSERVATION TECHNICIAN Inhaled Oxygen Concentration - - Weight 61.2 kg (135 lb) 11/03/2021 12:51 PM ENERGY AND CONSERVATION TECHNICIAN Height 165.1 cm (5' 5 ) 11/03/2021 12:51 PM ENERGY AND CONSERVATION TECHNICIAN Body Mass Index 22.47 11/03/2021 12:51 PM ENERGY AND CONSERVATION TECHNICIAN Plan of Treatment Health Maintenance Due Date [...] this topic Medical Devices Implanted Type Area Insole Toe Snipping Machine Operator Device Identifier Shelf Expiration Date Model / Serial / Lot Jose Antonio [employer] [id number] 17.0 Tecnis Optiedge 6mm 13mm 3 Piece Anterior Aspheric Monofocal Uv - [id number] - [id number] Implanted:Qty: 1 on 09/15/2021 by Mackenzie Jacobson MD at [facility] Lens Right: Lens [place] [employer] [id number] 05/31/2022 [id number] / [id number] / [employer]oSys [id number] - [id number] - [id number] Implanted:Qty: 1 on 11/03/2021 by Mackenzie Jacobson MD at [facility] Lens Left: Lens [employer] [id number] 05/19/2024 [id number] / [id number] / Insurance [facility] Care Teams Women'S Swim Coach Relationship Specialty Start Date End Date No, Physician PCP - General 04/22/21 No, Physician 04/15/21
--- OUTSIDE RECORDS SUMMARY | 2025-04-08 21:23 | XMS_ITS | Referral Summary ---
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 Gender Identity Not on file Sexual Orientation Not on file Last Filed Vital Signs Vital Sign Reading Time Taken Comments Blood Pressure 115/65 11/03/2021 4:20 PM LUMBER PILER Pulse 86 11/03/2021 4:25 PM LUMBER PILER Temperature 36.2 C (97.2 F) 11/03/2021 4:05 PM LUMBER PILER Respiratory Rate 11 11/03/2021 4:25 PM LUMBER PILER Oxygen Saturation 99% 11/03/2021 4:25 PM LUMBER PILER Inhaled Oxygen Concentration - - Weight 61.2 kg (135 lb) 11/03/2021 12:51 PM LUMBER PILER Height 165.1 cm (5' 5 ) 11/03/2021 12:51 PM LUMBER PILER Body Mass Index 22.47 11/03/2021 12:51 PM LUMBER PILER Plan of Treatment Not on file Medical Devices Implanted Type Area Demo Event Specialist Device Identifier Shelf Expiration Date Model / Serial / Lot Means [employer] [id number] 17.0 Tecnis Optiedge 6mm 13mm 3 Piece Anterior Aspheric Monofocal Uv - [id number] - [id number] Implanted:Qty: 1 on 09/15/2021 by Mackenzie Jacobson MD at [facility] Lens Right: Lens Means [employer] [id number] 05/31/2022 [id number] / [id number] / [employer] [id number] - [id number] - [id number] Implanted:Qty: 1 on 11/03/2021 by Mackenzie Jacobson MD at [facility] Lens Left: Lens [employer] [id number] 05/19/2024 [id number] / [id number] / Insurance Care Teams Fish Net Stringer Relationship Specialty Start Date End Date No, Physician PCP - General 04/22/21 No, Physician 04/15/21
== END 2025-04-08 21:17 | disposition left against medical advice (07) ==
LOC: ANHED 21:21
PROVIDERS: Emergency Provider Physician Assistant
DX: R11.0 Nausea (principal); R23.2 Flushing; F15.90 Other stimulant use, unspecified, uncomplicated; Z98.49 Cataract extraction status, unspecified eye; F17.210 Nicotine dependence, cigarettes, uncomplicated; Z79.899 Other long term (current) drug therapy
CPT/HCPCS: 36415; 80048; 83735; 85025; 99283

== ENCOUNTER 2025-07-28 11:39 | Emergency (ER) | payer OTHER, SELFPAY ==
--- OUTSIDE RECORDS SUMMARY | 2025-07-08 04:20 | XMS_ITS ---
Author Organization [facility] Address [address] [place] [address] Care Team Providers Care Carburetor Rebuilder Name Role Phone Hector Strickland Primary Care Provider REASON FOR VISIT 3 Month Psych F/U & Med Refill, last seen 03/27/25, next available appt. Social History Sex Assigned At : Social History Observation Description Sex Assigned At Female Encounters Encounter Location Date Provider Diagnosis [address] [place] [address] 07/08/2025 Hector Strickland Plan Of Treatment No Information Progress Notes * JEREMYValeDOB:[birth year] (34 yo F)Acc No.[id number]:07/08/2025 UNLOCKED PROGRESS NOTE Patient: Vale RODRIGUEZ Provider: Brian Strickland DNP, CONNER- :1990 A ge:34 Y S ex:Female Date:07/08/2025 [address] [facility] Subjective: * Chief Complaints: * 1 . 3 Month Psych F/U & Med Refill, last seen 03/27/25, next available appt.. * Medical History: Objective: * Vitals: Assessment: Plan: * Treatment: * * Electronic signature of Agapito Strickland APRN, [id number] on 07/28/2025 at 11:57 AM CDT Sign off status: Pending * Provider: Brian Strickland DNP, CONNER-BC Date: 0 07/08/2025 Generated for Ashwin salmon/Margarita/Sp on: 0 07/28/2025 11:57 AM CDT
--- NOTE | ~2025-07-28 | US_ITS ---
EXAMINATION: US pelvic complete w TV, 07/28/2025 13:30 CDT HISTORY: abnormal uterine bleeding Comparison: None Technique: [place]-scale and color Doppler images were obtained. Findings: Uterus: Uterus anteverted at 9.8 x 4.7 x 6.2 cm with some cervical nabothian cysts. . Endometrium 10 mm, no abnormal fluid. Right Ovary:Right ovary 3.7 x 3.2 x 4.1 cm, no adnexal mass, normal fluid. Left Ovary: Left ovary not identified due to bowel gas. Free Fluid: Minimal free fluid. Impression: 1. No etiology to explain the patient's symptoms Reviewed, dictated and finalized at location A. Impression: 1. No etiology to explain the patient's symptoms
[2025-07-28 11:43] VITALS: BP 125/95; PULSE 102; RESP 19; TEMP 36.5; O2SAT 100
[2025-07-28 11:49] VITALS: BP 132/90; PULSE 94; RESP 15; O2SAT 100
--- OUTSIDE RECORDS SUMMARY | 2025-07-28 11:57 | XMS_ITS | Clinical Summary ---
Author Organization [facility] Address [facility] [place] [address] Care Team Providers Care Timber Hand Name Role Phone Unavailable Primary Care Provider Unavailabl e Social History Tobacco Use Types Packs/Day Years Used Date Smoking Tobacco: Never Assessed Comments Unknown Sex and Gender Information Value Date Recorded Sex Assigned at Not on file Legal Sex Female 5:12 PM CDT Gender Identity Not on file Sexual Orientation Not on file Plan of Treatment Health Maintenance Due Date Last Done Comments Cervical Cancer Screening Pa p Smear (Age 30 to 64) Every 3 Years 1990 Annual Physical 1993 Hepatitis C 2008 DTaP, Tdap and Td Vaccines ( 1 - Tdap) 2009 Hepatitis B Vaccines (1 of 3 - 19+ 3-dose series) 2009 HPV Vaccines (1 - 3-dose SCD M series) 2017 Cervical Cancer Screening Pa p with HPV Testing (Age 30 to 64) Every 5 Years 2020 Cervical Cancer Screening with HPV 2020 COVID-19 Vaccine (2023-2 5 season) 2025 Meningococcal B Vaccine Aged Out No l onger eligible based on patient's age to complete this topic Meningococcal Vaccine Aged Out No roc tania eligible based on patient's age to complete this topic Pneumococcal Vaccine: Pediat rics (0 to 5 Years) and At-Risk Patients (6 to 49 Years) Aged Out No longer eligible b ased on patient's age to complete this topic RSV Immunizations Under 20 Months Aged Out No longer eligible based on patient's age to complete this topic
--- OUTSIDE RECORDS SUMMARY | 2025-07-28 11:57 | XMS_ITS | Patient Health Record ---
Author Organization [facility] Address [address] [place] [address] Care Team Providers Care Housing Property Manager Name Role Phone Marco A Hector Primary Care Provider [phone] Kathy Miller Unavailable [phone] Mel Yi Unavailable [phone] Allergies No Known Allergies Results Component Value [...] Duration) Notes Start Date End Date Status Concerta 27 MG 1 tablet in the morning Orally Once a day; Duration: 30 days 08/28/2024 Not-Taking Vyvanse 30 MG 1 capsule in the morning, 1 capsule in the afternoon Orally twice a day. Please fill on or after August 13, 2025; Duration: 30 days 07/20/2025 Active Methylphenidate HCl 20 MG 1.5 tablet on an empty stomach Orally Twice a day. Please fill on or after December 02, 2024.; Duration: 30 days 11/06/2024 Active Vyvanse 30 MG 1 capsule in the morning, 1 capsule in the afternoon Orally twice a day Please fill on or after September 08, 2025.; Duration: 30 days 07/20/2025 Active Vyvanse 30 MG 1 capsule in the morning ( DAW1) Orally Once a day; Duration: 13 days 06/25/2025 Active Vyvanse 30 MG 1 capsule in the morning Orally Once a day. Please fill on or after May 20, 2025.; Duration: 30 days 03/28/2025 Active Vyvanse 30 MG 1 capsule in the morning Orally daily; Duration: 10 days 07/08/2025 Active guanFACINE HCl 1 MG TAKE 1 TABLET BY MOUTH EVERY DAY AT BEDTIME; Duration: 30 Not-Taking traZODone HCl 50 MG 1 tablet at bedtime as needed for insomnia Orally Once a day; Duration: 90 days Active Vyvanse 30 MG 1 capsule in the morning, 1 capsule in the afternoon Orally twice a day; Duration: 30 days Resending with DAW1 coding. 07/18/2025 Active Social History Tobacco Use: Social History [...] W/U Status Risk Notes Problem Tobacco user (081865484) Nicotine dependence, unspecified, uncomplicated (F17.200) Active confirmed Problem Anxiety (10406119) Anxiety (F41.9) Active confirmed Problem Attention deficit disorder (29016005) ADD (attention deficit disorder) (F90.0) Active confirmed Problem Depressed (51058065) Depressed (F32.9) Active confirmed Problem Impaired concentration (7189025863) Impaired concentration (R41.840) Active confirmed Vital Signs Heart Rate 88 /min 09/26/2024 Temperature 97.3 degrees Fahrenheit 09/26/2024 Respiratory Rate 16 /min 09/26/2024 Oximetry 97 % 09/26/2024 Blood pressure diastolic 70 mm Hg 09/26/2024 Height 66 in 09/26/2024 Blood pressure systolic 118 mm Hg 09/26/2024 Weight 146.4 lbs 09/26/2024 BMI 23.63 kg/m2 09/26/2024 Encounters Encounter Location Date Provider Diagnosis [address] [place] [address] 08/28/2024 Hector Srtickland Anxiety F41.9 ; ADD (attention deficit disorder) F90.0 ; Depressed F32.9 and Nicotine dependence, unspecified, uncomplicated F17.[address] [address] 09/26/2024 Hector Strickland ADD (attention deficit disorder) F90.0 ; Encounter for immunization Z23 ; Nicotine dependence, unspecified, uncomplicated F17.200 ; Anxiety F41.9 ; Depressed F32.9 and Medication monitoring encounter Z51.[address] [address] 11/06/2024 Hector Strickland Anxiety F41.9 ; ADD (attention deficit disorder) F90.0 ; Depressed F32.9 and Medication side effect T88.7XXA [address] [address] 01/20/2025 Hector Strickland ADD (attention deficit disorder) F90.0 ; Anxiety F41.9 ; Depressed F32.9 and Medication side effect T88.7XXA [address] [address] 03/27/2025 Hector Strickland ADD (attention deficit disorder) F90.0 ; Depressed F32.9 ; Anxiety F41.9 and Medication side effect T88.7XXA [address] [address] 07/17/2025 Hector Strickland ADD (attention deficit disorder) F90.0 ; Anxiety F41.9 and Depressed F32.9 [facility] [address] [place] [address] 08/30/2024 Hector Strickland ADD (attention deficit disorder) F90.[address] [address] 09/26/2024 Hector Strickland [address] [address] 11/04/2024 Kathy Miller ADD (attention deficit disorder) F90.[address] [address] 01/14/2025 Hector Strickland ADD (attention deficit disorder) F90.[address] [address] 01/20/2025 Hector Strickland ADD (attention deficit disorder) F90.[address] [address] 06/25/2025 Hector Stirckland ADD (attention deficit disorder) F90.0 and Depressed F32.[address] [address] 07/08/2025 Hector Strickland ADD (attention deficit disorder) F90.0 and Depressed F32.[address] [address] 09/05/2024 Hector Strickland [address] [address] 09/27/2024 Hector Strickland [address] [address] 02/19/2025 Hector Strickland Assessments Encounter Date Diagnosis (ICD Code) Assessment Notes Treatment Notes Treatment Clinical Notes Section Notes 08/28/2024 Anxiety (ICD-10 - F41.9) Client agreeable [...] (attention deficit disorder) (ICD-10 - F90.0) 09/26/2024 ADD (attention deficit disorder) (ICD-10 - [...] change to Methylphenidate 30 mg BID. 09/26/2024 Encounter for immunization (ICD-10 - Z23) [...] (attention deficit disorder) (ICD-10 - F90.0) 01/20/2025 ADD (attention deficit disorder) (ICD-10 - [...] be reassessed. She verbalizes agreement/unders tanding. 01/20/2025 Anxiety (ICD-10 - F41.9) Client doing [...] have resolved with the transition to Vyvanse. 06/25/2025 ADD (attention deficit disorder) (ICD-10 - F90.0) 07/08/2025 ADD (attention deficit disorder) (ICD-10 - F90.0) 07/17/2025 ADD (attention deficit disorder) (ICD-10 - F90.0) Client doing well overall and feels the dosage of Vyvanse is working well but losing its efficacy in the afternoon. 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 She would like to try taking another 30 mg around noon to see if this solves this issue. 07/17/2025 Anxiety (ICD-10 - F41.9) Client doing well overall and feels the dosage of Vyvanse is working well but losing its efficacy in the afternoon. 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 She would like to try taking another 30 mg around noon to see if this solves this issue. 07/08/2025 Depressed (ICD-10 - F32.9) 06/25/2025 Depressed (ICD-10 - F32.9) 03/27/2025 Depressed (ICD-10 - F32.9) Client has [...] start over with new treatment plan. 08/28/2024 Nicotine dependence, unspecified, uncomplicated (ICD-10 - [...] have resolved with the transition to Vyvanse. 07/17/2025 Depressed (ICD-10 - F32.9) Client doing well overall and feels the dosage of Vyvanse is working well but losing its efficacy in the afternoon. 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 She would like to try taking another 30 mg around noon to see if this solves this issue. 03/27/2025 Medication side effect (ICD-10 - T88.7XXA) [...] Will change to Methylphenidate 30 mg BID. [place]/20/2025 [place]. Discussed sleep hygiene and caffeine intake with encouragement to limit electronic devices an hour before bed and to limit caffeine after 3:00pm. Exercise benefits for mood and health discussed. Psychoeducation regarding psychiatric illness provided. Client was educated about risks and benefits of medication, alternatives to medication, off label uses of medication, suicidal ideation with SSRIs, self-administrati on and compliance with medication along with how to safely store medication. Verbal informed consent obtained. Client agrees to return sooner if symptoms worsen or if suicidal or homicidal ideations occur. Client has the phone number to the 24-hour crisis line at [facility]. Questions addressed. Client verbalized understanding of all [...] verbalizes agreement/unders tanding. 03/27/2025 [place]. Discussed sleep hygiene and caffeine intake with encouragement to limit electronic devices an hour before bed and to limit caffeine after 3:00pm. Exercise benefits for mood and health discussed. Psychoeducation regarding psychiatric illness provided. Client was educated about risks and benefits of medication, alternatives to medication, off label uses of medication, suicidal ideation with SSRIs, self-administrati on and compliance with medication along with how to safely store medication. Verbal informed consent obtained. Client agrees to return sooner if symptoms worsen or if suicidal or homicidal ideations occur. Client has the phone number to the 24-hour crisis line at [facility]. Questions addressed. Client verbalized understanding of all [...] have resolved with the transition to Vyvanse. 08/28/2024 [place]. Discussed sleep hygiene and caffeine intake with encouragement to limit electronic devices an hour before bed and to limit caffeine after 3:00pm. Exercise benefits for mood and health discussed. Psychoeducation regarding psychiatric illness provided. Client was educated about risks and benefits of medication, alternatives to medication, off label uses of medication, suicidal ideation with SSRIs, self-administrati on and compliance with medication along with how to safely store medication. Verbal informed consent obtained. Client agrees to return sooner if symptoms worsen or if suicidal or homicidal ideations occur. Client has the phone number to the 24-hour crisis line at [facility]. Questions addressed. Client verbalized understanding of all [...] to start over with new treatment plan. 11/06/2024 [place]. Discussed sleep hygiene and caffeine intake with encouragement to limit electronic devices an hour before bed and to limit caffeine after 3:00pm. Exercise benefits for mood and health discussed. Psychoeducation regarding psychiatric illness provided. Client was educated about risks and benefits of medication, alternatives to medication, off label uses of medication, suicidal ideation with SSRIs, self-administrati on and compliance with medication along with how to safely store medication. Verbal informed consent obtained. Client agrees to return sooner if symptoms worsen or if suicidal or homicidal ideations occur. Client has the phone number to the 24-hour crisis line at [facility]. Questions addressed. Client verbalized understanding of all information and is agreeable to treatment plan. Client doing well overall except for minor side effects r/t methylphenidate which were addressed via education and prn start of Pepcid/Colace. No other changes to tx plan. 09/26/2024 [place]. Discussed sleep hygiene and caffeine intake with encouragement to limit electronic devices an hour before bed and to limit caffeine after 3:00pm. Exercise benefits for mood and health discussed. Psychoeducation regarding psychiatric illness provided. Client was educated about risks and benefits of medication, alternatives to medication, off label uses of medication, suicidal ideation with SSRIs, self-administrati on and compliance with medication along with how to safely store medication. Verbal informed consent obtained. Client agrees to return sooner if symptoms worsen or if suicidal or homicidal ideations occur. Client has the phone number to the 24-hour crisis line at [facility]. Questions addressed. Client verbalized understanding of all [...] Will change to Methylphenidate 30 mg BID. 07/17/2025 [place]. Discussed sleep hygiene and caffeine intake with encouragement to limit electronic devices an hour before bed and to limit caffeine after 3:00pm. Exercise benefits for mood and health discussed. Psychoeducation regarding psychiatric illness provided. Client was educated about risks and benefits of medication, alternatives to medication, off label uses of medication, suicidal ideation with SSRIs, self-administrati on and compliance with medication along with how to safely store medication. Verbal informed consent obtained. Client agrees to return sooner if symptoms worsen or if suicidal or homicidal ideations occur. Client has the phone number to the 24-hour crisis line at [facility]. Questions addressed. Client verbalized understanding of all information and is agreeable to treatment plan. Client doing well overall and feels the dosage of Vyvanse is working well but losing its efficacy in the afternoon. 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 She would like to try taking another 30 mg around noon to see if this solves this issue. Plan Of Treatment No Information Insurance Providers Payer Name Payer Address Payer Phone Subscriber Number Group Number Insured Name Patient Relationship to Insured Coverage Start Date Coverage End Date [facility] [address] [place] [phone] [id number] Vale Carrasco Self - patient is the insured 3 [employer] [address] [place] [phone] [id number] Vale Carrasco Self - patient is the insured 3 Medical (General) History Surgical History Surgery Date(Month/Year) cataract removal(bilateral) 2020 RT cataract removal 08/2022 LT cataract removal 10/2022 Hospitalization History Reason Date(Month/Year)
--- OUTSIDE RECORDS SUMMARY | 2025-07-28 11:57 | XMS_ITS | Clinical Summary ---
Author Organization [facility] Address [address] [place] [address] Care Team Providers Care Contact Lens Molder Name Role Phone Unavailable Primary Care Provider Unavailabl e Source Comments [facility],non-owned Affiliates and Associated Physician Practices is amultiple site organization consisting of ambulatory clinics and hospital sitesin [place], [place], [place] and [place]. This disclosure is being madepursuant to the Care Everywhere program and may not contain all information available regarding this patient. 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 Gender Identity Not on file Sexual Orientation [...] A M CDT Height 165.1 cm (5' 5) 09/16/2020 9:22 AM CDT Body Mass Index 23.4 09/16/2020 9:22 AM CDT Plan of Treatment Health Maintenance Due Date Last Done Comments HIV SCREENING 2005 HEPATITIS C SCREENING 11/07/2008 DTAP/TDAP/TD VACCINES (1 - Tdap) 2009 HEPATITIS B VACCINE (1 of 3 - 19+ 3-dose series) 2009 HPV VACCINE (1 - 3-dose SCDM series) 2017 DEPRESSION SCREENING 11/20/2024 COVID-19 VACCINE (1 - 2023-2 5 season) 2025 INFLUENZA VACCINE (#1) 2025 ZOSTER VACCINE (1 of 2) 2040 [...] this topic Medical Devices Implanted Type Area Sap Portal Architect Device Identifier Shelf Expiration Date Model / Serial / Lot Screw 2mm 8mm Slf Drl Xpn Lgt Wire Mndb Implanted:Qty : 4 on 06/24/2020 by Jethro Correa MD at [facility] Explanted:Qty : 2 on 09/16/2020 at [facility] N/A: Mandible Ulysses Craniomaxillofacial / / Explanted Type Area Sap Portal Architect Device Identifier Shelf Expiration Date Model / Serial / Lot Screw 2mm 8mm Slf Drl Xpn Lgt Wire Mndb Implanted:Qty : 4 on 06/24/2020 by Jethro Corera MD at [facility] Explanted:Qty : 4 on 09/16/2020 at [facility] N/A: Maxilla Tee Craniomaxillofacial / / Insurance [facility]
--- OUTSIDE RECORDS SUMMARY | 2025-07-28 11:57 | XMS_ITS | Clinical Summary ---
Author Organization [facility] Address [address] [place] [address] Care Team Providers Care Climate Change Analyst Name Role Phone No, Physician Unavailable No, Physician Primary Care Provider [phone] Allergies Active Allergy Reactions Criticality Noted Date [...] 04/22/2021 Assessment & Plan (10/22/2021 11:42 PM COMPUTER SECURITY SPECIALIST): POD1 Exchange Intraocular Lens - Right and [...] 04/20/2021 Assessment & Plan (11/08/2021 10:41 PM COMPUTER SECURITY SPECIALIST): POD1 Extraction Cataract - Phacoemulsification And Lens [...] on one occasion? Less than monthly 10/29/2021 Personal Safety Answer Date Recorded Have you ever been in or are you currently in a harmful physical or emotional relationship or is someone making you feel afraid or unsafe? Denies 04/24/2025 Comments No Sex and Gender Information Value Date Recorded Sex Assigned at Not on file Legal Sex Female 11:15 PM COMPUTER SECURITY SPECIALIST Gender Identity Not on file Sexual Orientation Not on file Obstetrics History Para Term AB IAB SAB Ectopic Multiple Livin g Live Births 3 3 Date Outcome GA Total Labor Labor/2nd/3rd Weight Sex Type Anes PTL Anayeli A1 A5 Name Clin Para Para Para Last Filed Vital Signs Vital Sign Reading Time Taken Comments Blood Pressure 108/66 04/24/2025 3:15 AM CDT Pulse 85 04/24/2025 3:15 AM CDT Temperature 36.6 C (97.9 F) 04/24/2025 12:18 AM CDT Respiratory Rate 17 04/24/2025 3:15 AM CDT Oxygen Saturation 96% 04/24/2025 3:15 AM CDT Inhaled Oxygen Concentration - - Weight 65.8 kg (145 lb) 04/24/2025 12:18 AM CDT Height 165.1 cm (5' 5) 04/24/2025 12:18 AM CDT Body Mass Index 24.13 04/24/2025 12:18 AM CDT Plan of Treatment Health Maintenance Due Date Last Done Comments Cervical Cancer Screening 1990 Depression Screening 1990 Hepatitis C Screening 1990 Varicella Vaccines (1 of 2 - 13+ 2-dose series) 2003 Hepatitis B Screening 2008 Regular Well Visit/Exam 18-64 2008 Pneumococcal vaccine <65 (1 of 2 - PCV) 2009 HPV Vaccines (1 - 3-dose SCDM series) 2017 Influenza Vaccine (#1) 2025 12/10/2015 DTaP/Tdap/Td Vaccine (3 - Td or Tdap) 12/22/202512/2015, 02/21/1995 Medical Devices Implanted Type Area Master Carpenter Device Identifier Shelf Expiration Date Model / Serial / Lot Pops [id number] 17.0 Tecnis Optiedge 6mm 13mm 3 Piece Anterior Aspheric Monofocal Uv - [id number] - [id number] Implanted:Qty: 1 on 09/15/2021 by Mackenzie Jacobson MD at [facility] Advanced Medicine Lens Right: Lens [employer] [id number] 05/31/2022 [id number] / [id number] / [employer] [id number] - [id number] - [id number] Implanted:Qty: 1 on 11/03/2021 by Mackenzie Jacobson MD at [facility] Lens Left: Lens [employer] [id number] 05/19/2024 [id number] / [id number] / Insurance [facility] [address] [place] [id number] Care Teams Climate Change Analyst Relationship Specialty Start Date End Date No, Physician PCP - General 04/22/21 No, Physician 04/15/21
--- NOTE | 2025-07-28 12:07 | ED_ITS ---
HPI - Female Genitourinary General Chief complaint: Vaginal Bleeding Stated complaint: pos preg test, vaginal bleeding Time Seen by Provider: 07/28/25 12:04 Source: patient Mode of arrival: ambulatory Limitations: no limitations History of Present Illness HPI Narrative: 34-year-old 003 female presents with vaginal bleeding that started on Monday and persisted yesterday. Patient had a tubal ligation 9 years ago but states when her symptoms began she took 2 home tests yesterday and both were faintly positive. She has been experiencing 6/10 left lower quadrant pain which she initially described as tightness and soreness and cramping but with increasing pain last night. This has been associated with nausea and vomiting. She notes that her tubal ligation was performed here at [facility] but forgets with whom. Although she does not follow regularly with them, her previous obstetric/gynecologic care had been through [facility]. She has taken no medications prior to arrival. She notes that normally her menstrual cycle, some on approximately the 20th each month but this was unusual given it is early. In addition she states that she spotted in June with this was also irregular. She is sexually active with men, 1 male partner in the past month. Last oral intake was yesterday. No history of sexually transmitted infections. She denies any other bleeding issues including no mucosal bleeding. Not on anticoagulation. Patient reports passing blood clots and mucus yesterday including enlarged blood clot. She denies any hair changes or weight changes. Related Data Home Medications ?Medication ?Instructions ?Recorded ?Confirmed ?Last Taken ?Type bupropion HCl 150 mg 24 hr tablet, mg PO 11/11/23 Unk nown History extended release hydroxyzine HCl 25 mg tablet mg 11/11/23 Unknown Hist ory Allergies Allergy/AdvReac Type Severity Reaction Status Date / Time Sulfa (Sulfonamide Allergy Rash Verified 07/28/25 11:48 Antibiotics) sulfa Allergy Intermediate Rash Uncoded 07/28/25 11:48 [facility] Past Medical History Medical History (Updated 07/29/25 @ 00:00 by Az Sy) Mandible fracture Hx of migraines Surgical History Surgical History History of cataract extraction History of tubal ligation approx 2015 Family History Family History Grandparent Cerebrovascular accident Other Autoimmune disease Heart disease Hypertension Social History Social History (Updated 07/28/25 @ 12:21 by Barb Rothman MD) Smoking packs per day: 0.5 Smoking cigarettes per day: 10.0 Smoking status: Current every day smoker Tobacco type: cigarettes Alcohol intake: current Alcohol use details: rare social Substance use: never Living arrangements: with family Additional living arrangements comments: 3 children Gender identity (if verbalized by the patient): Female Exam 2 Narrative: GENERAL: Well-appearing, well-nourished, and in no acute distress. HEAD: Normocephalic, atraumatic. EYES: Non injected, non icteric ENT: Nares clear, no rhinorrhea or epistaxis. Gross auditory acuity intact. NECK: Supple. No meningismus. CHEST: Speaking in full sentences. No respiratory distress. HEART: Regular rate and rhythm. . ABDOMEN: Soft, nondistended. No rigidity or guarding. Not peritoneal. No tenderness to palpation throughout EXTREMITIES: Normal range of motion. No lower extremity edema. SKIN: Warm, dry, no rash. NEURO: No focal deficits. Alert and oriented. Answering questions. Following commands. Normal speech without aphasia or dysarthria. PSYCH: Normal mood and affect. Course Vital Signs Vital signs: Vital Signs Temperature 97.7 F 07/28/25 11:43 Pulse Rate 102 H 07/28/25 11:43 Respiratory Rate 19 07/28/25 11:43 Blood Pressure 125/95 H 07/28/25 11:43 Pulse Oximetry 100 07/28/25 11:43 Oxygen Delivery Room Air 07/28/25 11:43 Temperature 98.1 F 07/28/25 15:43 Pulse Rate 63 07/28/25 15:43 Respiratory Rate 16 07/28/25 15:43 Blood Pressure 111/61 07/28/25 15:43 Pulse Oximetry 100 07/28/25 15:43 Oxygen Delivery Room Air 07/28/25 11:43 MDM - Female Genitourinary MDM Narrative Medical decision making narrative: 34-year-old 003 female presents with report of LLQ abd pain and vaginal bleeding. History of tubal ligation 9 years ago. Thought 2 faintly positive home tests at home. In the emergency department she is afebrile vital signs notable for an elevated diastolic blood pressure and mild tachycardia, both of which resolved on repeat assessment without interval intervention. IV fluids, ondansetron, and acetaminophen ordered. CBC with mild abnormalities on the differential but otherwise without anemia, leukocytosis, thrombocytopenia. Urine test negative. Mild hypokalemia, oral repletion ordered. BetaHcg negative on serum. Vaginal bleeding is most likely of non emergent etiology, thought to be secondary to fibroids or other non emergent cause of abnormal uterine bleeding. Unlikely hemorrhagic cystitis: Urine with hematuria (patient currently menstruating) but otherwise wo signs of infection. Unlikely PCOS, pituitary dysregulation, hypothyroidism: No changes in hair distribution, weight change: TSH normal Unlikely coagulopathy (vWD, ITP): No anticoagulation medication, platelets normal, no other mucosal bleeding. Unlikely PID: monogamous with sexual partner also believed to be monogamous, no history of STDs. STD testing negative today. Unlikely other infectious etiology: nonseptic appearance, no recent history of instrumentation. US negative as below. Patient is reassessed at 2:45 p.m.. She reports her symptoms have resolved and she has no complaints. 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 Plan discharge home with return precautions, instructions for prompt outpatient follow up. Provided Rx for OTC analgesic mediations. Differential Diagnosis Differential diagnosis: Likely urinary tract infection, trichomoniasis, cervicitis, ovarian cyst, ruptured ovarian cyst, cystitis, dysmenorrhea and other (/ectopic ; diverticulitis; STI; abnormal/dysfunctional uterine bleeding) Lab Data Attestation: I reviewed the patient's lab results. 07/28/25 12:24 07/28/25 12:24 Labs: Lab Results 07/28/25 07/28/25 07/28/25 Range/Units 12:22 12:23 12:24 WBC 6.8 (4.5-10.0) K/mm3 RBC 4.34 (4.2-5.4) M/mm3 Hgb 12.1 (12.0-15.0) g/dL Hct 37.1 (37.0-47.0) % MCV 85.5 (80-100) fl MCH 27.9 (26-34) pg MCHC 32.6 (32-36) g/dl RDW 12.7 (11.5-14.5) % Plt Count 181 (150-375) k/mm3 MPV 10.3 (7.4-10.4) fl Immature Gran % (Auto) 0.3 (0-0.5) % Neut % (Auto) 75.4 H (45.5-73.1) % Lymph % (Auto) 18.2 L (18.3-44.2) % [place] % (Auto) 5.4 (2.6-8.5) % Eos % (Auto) 0.4 (0-4.4) % Baso % (Auto) 0.3 (0.2-1.2) % Lymph # (Auto) 1.24 (0.9-3.2) K/mm3 [place] # (Auto) 0.4 (0.1-0.6) K/mm3 Eos # (Auto) 0.0 (0-0.3) K/mm3 Baso # (Auto) 0.0 (0.0-0.1) K/mm3 Abs Immat Gran (auto) 0.02 (0.00-0.031) K/mm3 Absolute Neuts (auto) 5.1 (1.3-6.7) K/mm3 Absolute Nucleated RBC 0.000 (0.0-0.012) K/mm3 Nucleated RBC % 0.0 (0.0-0.2) % PT 14.5 (11.1-14.7) Seconds INR 1.1 APTT 27.4 (22.3-36.8) Seconds Sodium 136 L (137-145) mmol/L Potassium 3.3 L (3.4-5.0) mmol/L Chloride 96 L (98-107) mmol/L Carbon Dioxide 31 H (22-30) mmol/L Anion Gap 9 (4-12) mmol/L BUN 12 D (7-17) mg/dL Creatinine 0.85 (0.7-1.0) mg/dL Estim Creat Clear Calc 73 ml/min Estimated GFR > 60 (59 - ) Glucose 108 (65-110) mg/dL Calcium 9.0 (8.4-10.2) mg/dL Total Bilirubin 0.5 (0.2-1.3) mg/dL AST 21 (14-36) U/L ALT 13 (6-35) U/L Alkaline Phosphatase 44 (38-126) U/L Total Protein 7.5 (6.3-8.2) g/dL Albumin 4.5 (3.5-5.1) g/dL TSH 2.550 (0.465-4.680) uIU/mL Beta HCG, Quant < 2.39 mIU/ML Urine Color [place] H (Yellow) Urine Appearance Cloudy H (Clear) Urine pH 6.0 (5.0-9.0) Ur Specific [place] 1.024 (1.001-1.035) Urine Protein 1+ H (Negative) mg/dL Urine Glucose (UA) Negative (Negative) mg/dL Urine Ketones Trace H (Negative) mg/dL Ur Blood (Man) 3+ H (Negative) Urine Nitrate Negative (Negative) Urine Bilirubin 1+ H (Negative) Urine Urobilinogen 0.2 (<2.0) mg/dL Leukocyte Esterase Rfl Trace H (Negative) JENI/UL Urine RBC >100 H (0-2) /hpf Urine WBC 0-5 (0-3) /hpf Ur Squamous Epith Cells Few (Few) /hpf Urine Bacteria None seen /hpf Urine Casts 3-5 POC Urine HCG, Qual Negative (Negative) C. trachomatis (PCR) (NOT DETECTE) N. gonorrhoeae (PCR) (NOT DETECTE) T. vaginalis (PCR) (NOT DETECTE) Blood Type A Negative Antibody Screen Negative Doses of RhIg Required 1 07/28/25 Range/Units 13:08 WBC (4.5-10.0) K/mm3 RBC (4.2-5.4) M/mm3 Hgb (12.0-15.0) g/dL Hct (37.0-47.0) % MCV (80-100) fl MCH (26-34) pg MCHC (32-36) g/dl RDW (11.5-14.5) % Plt Count (150-375) k/mm3 MPV (7.4-10.4) fl Immature Gran % (Auto) (0-0.5) % Neut % (Auto) (45.5-73.1) % Lymph % (Auto) (18.3-44.2) % [place] % (Auto) (2.6-8.5) % Eos % (Auto) (0-4.4) % Baso % (Auto) (0.2-1.2) % Lymph # (Auto) (0.9-3.2) K/mm3 [place] # (Auto) (0.1-0.6) K/mm3 Eos # (Auto) (0-0.3) K/mm3 Baso # (Auto) (0.0-0.1) K/mm3 Abs Immat Gran (auto) (0.00-0.031) K/mm3 Absolute Neuts (auto) (1.3-6.7) K/mm3 Absolute Nucleated RBC (0.0-0.012) K/mm3 Nucleated RBC % (0.0-0.2) % PT (11.1-14.7) Seconds INR APTT (22.3-36.8) Seconds Sodium (137-145) mmol/L Potassium (3.4-5.0) mmol/L Chloride (98-107) mmol/L Carbon Dioxide (22-30) mmol/L Anion Gap (4-12) mmol/L BUN (7-17) mg/dL Creatinine (0.7-1.0) mg/dL Estim Creat Clear Calc ml/min Estimated GFR (59 - ) Glucose (65-110) mg/dL Calcium (8.4-10.2) mg/dL Total Bilirubin (0.2-1.3) mg/dL AST (14-36) U/L ALT (6-35) U/L Alkaline Phosphatase (38-126) U/L Total Protein (6.3-8.2) g/dL Albumin (3.5-5.1) g/dL TSH (0.465-4.680) uIU/mL Beta HCG, Quant mIU/ML Urine Color (Yellow) Urine Appearance (Clear) Urine pH (5.0-9.0) Ur Specific [place] (1.001-1.035) Urine Protein (Negative) mg/dL Urine Glucose (UA) (Negative) mg/dL Urine Ketones (Negative) mg/dL Ur Blood (Man) (Negative) Urine Nitrate (Negative) Urine Bilirubin (Negative) Urine Urobilinogen (<2.0) mg/dL Leukocyte Esterase Rfl (Negative) JENI/UL Urine RBC (0-2) /hpf Urine WBC (0-3) /hpf Ur Squamous Epith Cells (Few) /hpf Urine Bacteria /hpf Urine Casts POC Urine HCG, Qual (Negative) C. trachomatis (PCR) Not detected (NOT DETECTE) N. gonorrhoeae (PCR) Not detected (NOT DETECTE) T. vaginalis (PCR) Not detected (NOT DETECTE) Blood Type Antibody Screen Doses of RhIg Required Imaging Data Radiologist's impression: Impression: 1. No etiology to explain the patient's symptoms Discharge Plan Discharge Clinical Impression: Hypokalemia, Abdominal pain, LLQ, Abnormal uterine bleeding Patient Disposition: Home Condition: Stable Instructions: Antibiotic Form, Abnormal (Dysfunctional) Uterine Bleeding (ED), Abdominal Pain (ED) Additional Instructions: As we discussed, call [facility] [place] to follow-up with Ob Gyne. Return to the emergency department with any new or worsening symptoms. In particular, pain not responding to [id number] medications or bleeding saturating 1-2 pads/hour for 2-3 hours. Acetaminophen/Tylenol (maximum 3000 mg per day) is safe to take with NSAIDs (ibuprofen/Motrin) for pain relief. Patient Language: Lao Prescriptions: New ibuprofen 600 mg tablet 600 mg PO TID PRN (Reason: pain) Qty: 20 0RF acetaminophen 650 mg tablet extended release 650 mg PO Q8H PRN (Reason: pain) Qty: 30 0RF No Action hydroxyzine HCl 25 mg tablet bupropion HCl 150 mg tablet extended release 24 hr PO Follow-up/Referrals: Cayetano Julio MD [Physician, REVIEW SPECIALIST] PHYSICIAN,BOILER MAKER [Primary Care Provider, Internal Medicine] Stand Alone Forms: Work/School Release IP Time of Disposition: 14:50
--- OUTSIDE RECORDS SUMMARY | 2025-07-28 12:20 | XMS_ITS | Clinical Summary ---
Author Organization [facility] [employer] Address [address] [address] Care Team Providers Care Vamp Wetter Name Role Phone Unavailable Primary Care Provider Unavailabl e Source Comments [facility] [employer],non-owned Affiliates and Associated Physician Practices is amultiple site organization consisting of ambulatory clinics and hospital sitesin [place], [place], [place] and [place]. This disclosure is being madepursuant to the Care Everywhere program and may not contain all information available regarding this patient. 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 Gender Identity Not on file Sexual Orientation [...] this topic Medical Devices Implanted Type Area Superintendent Menagerie Device Identifier Shelf Expiration Date Model / Serial / Lot Screw 2mm 8mm Slf Drl Xpn Lgt Wire Mndb Implanted:Qty : 4 on 06/24/2020 by Jethro Correa MD at [facility] Explanted:Qty : 2 on 09/16/2020 at [facility] N/A: Mandible [place] Craniomaxillofacial / / Explanted Type Area Superintendent Menagerie Device Identifier Shelf Expiration Date Model / Serial / Lot Screw 2mm 8mm Slf Drl Xpn Lgt Wire Mndb Implanted:Qty : 4 on 06/24/2020 by Jethro Correa MD at [facility] Explanted:Qty : 4 on 09/16/2020 at [facility] N/A: Maxilla Tee Craniomaxillofacial / / Insurance [facility]
--- OUTSIDE RECORDS SUMMARY | 2025-07-28 12:20 | XMS_ITS | Clinical Summary ---
Author Organization [facility] Address [address] [place] [address] Care Team Providers Care Freight Loader Name Role Phone No, Physician Unavailable No, Physician Primary Care Provider [phone] Allergies Active Allergy Reactions Criticality Noted Date [...] 04/22/2021 Assessment & Plan (10/22/2021 11:42 PM TESTING [employer]AKING [employer]IPPING): POD1 Exchange Intraocular Lens - Right and [...] 04/20/2021 Assessment & Plan (11/08/2021 10:41 PM TESTING [employer]PING): POD1 Extraction Cataract - Phacoemulsification And Lens [...] on file Legal Sex Female 11:15 PM TESTING [employer] Gender Identity Not on file Sexual Orientation [...] 12/22/202512/2015, 02/21/1995 Medical Devices Implanted Type Area Housing Director Device Identifier Shelf Expiration Date Model / Serial / Lot [employer] [id number] 17.0 Tecnis Optiedge 6mm 13mm 3 Piece Anterior Aspheric Monofocal Uv - [id number] - [id number] Implanted:Qty: 1 on 09/15/2021 by Mackenzie Jacobson MD at [facility] Advanced Medicine Lens Right: Lens [employer] [id number] 05/31/2022 [id number] / [id number] / [employer] [id number] - [id number] - [id number] Implanted:Qty: 1 on 11/03/2021 by Mackenzie Jacobson MD at [facility] Lens Left: Lens [employer] [id number] 05/19/2024 [id number] / [id number] / Insurance [facility] [address] [id number] Care Teams Freight Loader Relationship Specialty Start Date End Date No, Physician PCP - General 04/22/21 No, Physician 04/15/21
[2025-07-28 12:24] LABS: BEDSIDEPREGUCG Negative (Negative)
[2025-07-28] MEDS: ACETAMINOPHEN 325 MG TABLET 650 MG PO (12:28)
[2025-07-28] MEDS: ONDANSETRON INJ 4 MG/2 ML VIAL IV PUSH (12:28)
[2025-07-28] MEDS: SODIUM CHLORIDE 0.9% IV 1,000 ML 999 ML IV CONT (12:28)
[2025-07-28 12:35] LABS: Hematocrit 37.1 % (37.0-47.0); Hemoglobin 12.1 g/dL (12.0-15.0); Immature Granulocyte Percent A 0.3 % (0-0.5); Lymphocytes Absolute Auto 1.24 K/mm3 (0.9-3.2); Mean Corpuscular HGB Conc 32.6 g/dl (32-36); Mean Corpuscular Hemoglobin 27.9 pg (26-34); Mean Corpuscular Volume 85.5 fl (80-100); Nucleated Red Blood Cells Absolute Auto 0.000 K/mm3 (0.0-0.012); Nucleated Red Blood Cells Perc 0.0 % (0.0-0.2); Platelet Count Result 181 k/mm3 (150-375); Red Blood Count 4.34 M/mm3 (4.2-5.4); White Blood Count 6.8 K/mm3 (4.5-10.0)
[2025-07-28 12:51] VITALS: BP 122/90; PULSE 76; RESP 15; O2SAT 100
[2025-07-28 12:51] LABS: INR 1.1; Prothrombin Time 14.5 Seconds (11.1-14.7)
[2025-07-28 12:52] LABS: Partial Thromboplastin Time 27.4 Seconds (22.3-36.8)
[2025-07-28 12:53] LABS: Alanine Aminotransferase 13 U/L (6-35); Albumin Level 4.5 g/dL (3.5-5.1); Alkaline Phosphatase 44 U/L (38-126); Anion Gap 9 mmol/L (4-12); Aspartate Amino Transferase 21 U/L (14-36); Bilirubin,Total 0.5 mg/dL (0.2-1.3); Blood Urea Nitrogen 12 mg/dL (7-17); Calcium 9.0 mg/dL (8.4-10.2); Carbon Dioxide 31 mmol/L (22-30); Chloride 96 mmol/L (98-107); Estimated CRCL calculation 73 ml/min; Estimated Glomerular Filt Rate > 60; Glucose 108 mg/dL (65-110); Potassium 3.3 mmol/L (3.4-5.0); Sodium 136 mmol/L (137-145); Total Protein 7.5 g/dL (6.3-8.2)
[2025-07-28 12:57] LABS: Add Urine Microscopic? YES; Appearance Urine Cloudy (Clear); Glucose Urine UA Negative (Negative); Leukocyte Esterase Ur Trace LEU/UL (Negative); Nitrate Urine Negative (Negative); Specific Grav Ur 1.024 (1.001-1.035)
[2025-07-28 13:05] VITALS: BP 126/78; PULSE 65; RESP 15; O2SAT 100
[2025-07-28] MEDS: POTASSIUM BICARBONATE 25 MEQ TABEF PO (13:05)
[2025-07-28 13:12] LABS: Beta HCG Quantitative < 2.39 mIU/ML
[2025-07-28] MEDS: KETOROLAC 15 MG/ML VIAL (*BKC) IV PUSH (14:15)
[2025-07-28 14:16] VITALS: PULSE 67; RESP 16; O2SAT 100
[2025-07-28 14:17] LABS: Thyroid Stimulating Hormone 2.550 uIU/mL (0.465-4.680)
[2025-07-28 14:27] LABS: Trichomonas Vag PCR NOT DETECTED (NOT DETECTE)
[2025-07-28 15:43] VITALS: BP 111/61; PULSE 63; RESP 16; TEMP 36.7; O2SAT 100
== END 2025-07-28 15:44 | disposition home or self-care (01) ==
PROVIDERS: Emergency Provider Student in an Organized Health Care Education/Training Program
DX: E87.6 Hypokalemia (principal); R10.32 Left lower quadrant pain; N93.9 Abnormal uterine and vaginal bleeding, unspecified; F17.210 Nicotine dependence, cigarettes, uncomplicated
CPT/HCPCS: 36415; 76830; 76856; 80053; 81001; 81025; 84443; 84702; 85025; 85461; 85610; 85730; 86850; 86900; 86901; 87491; 87591; 87661; 96361; 96374; 96375; 99284; A9270; J1885; J2405; J7030